=== PATIENT | male | born 1960 | race Caucasian/White ===

== ENCOUNTER 2016-10-16 11:03 | Inpatient (IN) ==
[2016-10-16 11:37] LABS: MANUAL DIFF NEEDED? NO
[2016-10-16 11:39] LABS: BASO% 0.4 % (0.0-0.8); EOS# 0.04 X1000 (0.0-0.7); EOS% 0.7 % (0.0-10.0); HEMATOCRIT 33.5 % (42.0-52.0); HEMOGLOBIN 11.1 g/dL (14.0-18.0); LYMPH# 1.19 X1000 (1.2-3.4); LYMPH% 21.5 % (20.5-51.1); MCH 28.5 PG (27-31); MCHC 33.1 g/dL (33-37); MCV 85.9 FL (81-99); MONO# 0.49 X1000 (0.11-0.59); MONO% 8.8 % (1.7-9.3); MPV 8.9 FL (7.4-10.4); NEUT% 68.6 % (42.2-75.2); PLT 281 X1000 (130-400)
[2016-10-16 12:05] LABS: AGAP 13; ALBUMIN 4.4 g/dL (3.5-5.0); ALKALINE PHOSPHATASE 79 U/L (32-122); AMYLASE 68 U/L (20-200); BUN 10 mg/dL (8-22); CALCIUM 8.8 mg/dL (8.8-10.2); CHLORIDE 93 mmol/L (98-107); COSMO 266; GOT 11 U/L (10-34); GPT 7 U/L (10-44); LIPASE 26 U/L (13-60); POTASSIUM 4.2 mmol/L (3.5-5.1); SODIUM 133 mmol/L (136-145); TCO2 27 mmol/L (25-35); TOTAL BILIRUBIN 0.32 mg/dL (0.20-1.00)
[2016-10-16 15:08] LABS: URINE CULTURE NEEDED? NO; URINE MICRO REVIEW NEEDED? NO; URINE SOURCE CLEAN CATCH
[2016-10-16 15:16] LABS: BILIRUBIN URINE NEGATIVE (NEGATIVE); BLOOD URINE NEGATIVE (NEGATIVE); COLOR YELLOW; GLUCOSE URINE NEGATIVE (NEGATIVE); LEUKOCYTES URINE NEGATIVE (NEGATIVE); NITRITE URINE NEGATIVE (NEGATIVE); PROTEIN URINE TRACE mg/dL (NEGATIVE); SP GRAVITY URINE 1.013; TURBIDITY URINE HAZY (CLEAR); UROBILINOGEN URINE NORMAL (NORMAL)
[2016-10-16 15:17] LABS: UR EPITHELIAL CELLS <10 /HPF (<10); URINE BACTERIA NEGATIVE /HPF; URINE RBC <10 /HPF (<10); URINE WBC <10 /HPF (<10)
--- NOTE | 2016-10-16 17:57 | PROVIDER DOCUMENTATION ---
This chart was entered by Alycia Mills Scribe, acting as scribe for Duane Mcconnell MD. HPI-General Adult - General Source: patient, other (PCP REFERRAL) - History of Present Illness -Gen Adult Nature of Presenting Problems: PT IS A 56YOM PRESENTING TO THE ED C/O INCREASED WEIGHT LOSS. ACCORDING TO PT HISTORY HE HAS LOST 50LBS OR MORE IN THE PAST 6 MONTHS. PT IS DOWN TO 114ILBS AND IS 5'9" tall. PT IS UNAWARE OF WHY OR HOW HE IS LOOSING SO MUCH WEIGHT AND DENIES ANY COMPLICATIONS AT THIS TIME. Location of Pain/Injury: reports: generalized Pain Radiation: reports: no radiation Quality of Pain: reports: none Severity: reports: moderate Onset/Duration: reports: gradual, other (6 MONTHS) Timing: reports: still present, changing over time Context/Activities at Onset: reports: light activity Modifying Factors: improves with: nothing Associated Symptoms: reports: fatigue, loss of appetite, weakness, other (50LB OR GREATER WEIGHT LOSS IN THE PAST 6 MONTHS). denies: back/neck pain, chest pain, constipation, diarrhea, shortness of breath, pain with inspiration, vomiting Similar Symptoms Previously?: Yes Recently seen or treated by another doctor?: No <Duane Mcconnell - Last Filed: 10/16/16 18:10> - General Source: patient <Bala Iyer - Last Filed: 10/16/16 19:29> - General Chief Complaint: Abdominal Pain Stated Complaint: STOMACH CRAMPS/NO EAT Time Seen by Provider: 10/16/16 14:08 Allergies/Adverse Reactions: Patient Allergies Allergy/AdvReac Type Severity Reaction Status Date / Time No Known Allergies Allergy Verified 10/16/16 15:00 Home Medications: Home Medication List Medication Instructions Recorded Confirmed Last Taken Type Roflumilast [Daliresp] 500 microgm PO DAILY 02/19/15 02/25/16 10/16/16 08:00 History Escitalopram Oxalate [Lexapro] 10 mg PO DAILY 02/25/16 02/25/16 02/25/16 07:00 History 10 MG Lisinopril 10 mg PO DAILY 02/25/16 02/25/16 10/16/16 08:00 History Clonazepam [Clonazepam] 0.5 mg PO TID 0510/16/16 10/16/16 08:00 History Fluconazole [Diflucan] 150 mg PO PRN PRN 10/16/16 10/16/16 Unknown History Hydroxyzine HCl [Hydroxyzine HCl] 50 mg PO 10/16/16 10/16/16 08:00 History Oxycodone E.r. [Oxycontin] 20 mg PO 4XDAY 10/16/16 10/16/16 10/16/16 08:00 History Temazepam [Temazepam] 15 mg PO DAILY 10/16/16 10/16/16 Unknown History Tizanidine HCl [Tizanidine HCl] 4 mg PO 10/16/16 10/16/16 08:00 History Review of Systems - Adult - REVIEW OF SYSTEMS - ADULT Constitutional: reports: see HPI, fatique, weight loss (50LB OR GREATER WEIGHT LOSS IN THE PAST 6 MONTHS). denies: chills Eyes: reports: no symptoms reported Ears, Nose, Mouth & Throat: reports: no symptoms reported Cardiovascular: reports: no symptoms reported Respiratory: reports: no symptoms reported Gastrointestinal: reports: no symptoms reported Genitourinary: reports: no symptoms reported Musculoskeletal: reports: no symptoms reported Integumentary: reports: no symptoms reported Neurological: reports: no symptoms reported Psychiatric: reports: no symptoms reported Endocrine: reports: no symptoms reported Hematologic/Lymphatic: reports: no symptoms reported Allergic/Immunologic: reports: no symptoms reported All Other Systems: Reviewed and Negative <Duane Mcconnell - Last Filed: 10/16/16 18:10> - REVIEW OF SYSTEMS - ADULT Constitutional: reports: see HPI <Bala Iyer - Last Filed: 10/16/16 19:29> Past History - Adult - PAST MEDICAL HISTORY-ADULT Review of Records: reports: Old Records Reviewed, Nursing Assessment Review, Medications Reviewed, Social history reviewed & non-contributory. Major Childhood Illnesses: reports: denies history Cardiovascular: reports: CHF, HTN Respiratory: reports: COPD Gastrointestinal: reports: denies history Obstetrical/Gynecological: reports: denies history Genitourinary: reports: denies history Musculoskeletal: reports: denies history Neurological: reports: Seizures/Epilepsy Endocrine/Immune: reports: denies history Other Conditions: reports: MRSA - PRIOR SURGERIES/PROCEDURES Surgical/Procedure History: reports: other (finger amputation) - IMMUNIZATION STATUS Childhood Immunizations: See Nurse Assessment Flu Vaccine: See Nurse Assessment - FAMILY HISTORY Family History: reviewed, not pertinent - SOCIAL HISTORY Smoking: other (USES VAP OR ELECTRONIC CIGARETTE) Provider spent 3-5 mins advising pt. on dangers of tobacco.: Discussed manners to quit use, and f/u contacts for add'l counseling. Substance Use: none presently/history of abuse Alcohol Use Frequency: sober (former use) Living Situation: family <Duane Mcconnell - Last Filed: 10/16/16 18:10> - PAST MEDICAL HISTORY-ADULT Review of Records: reports: Old Records Reviewed <Bala Iyer - Last Filed: 10/16/16 19:29> Physical Exam-General - PHYSICAL EXAM-ADULT Initial Vital Signs Reviewed: Yes - CONSTITUTIONAL General Appearance: alert, mild distress, thin. negative: appears well, no apparent distress - EYES Eyes: PERRL/EOMI, pink conjunctivae - HEAD, EARS, NOSE, MOUTH & THROAT HENMT: normocephalic/atraumatic, moist mucous membranes, normal ENT inspection, TMs normal, pharynx normal - NECK Neck: non-tender, full range of motion, supple, normal inspection - RESPIRATORY Respiratory: chest non-tender, lungs clear, normal breath sounds, no pleuratic chest pain, no respiratory distress, no accessory muscle use - CARDIOVASCULAR Cardiovascular: normal peripheral pulses, regular rate, rhythm, no edema, no gallop, no JVD, no murmur - GASTROINTESTINAL (ABDOMEN) Abdominal Exam: normal bowel sounds, non tender, soft, no organomegaly, no pulsatile mass - LYMPHATIC Lymphatic: no adenopathy - MUSCULOSKELETAL Back Exam: normal inspection, no CVA tenderness, no vertebral tenderness Extremity: normal range of motion, non-tender, normal gait, normal inspection, no pedal edema, no calf tenderness, normal capillary refill, pelvis stable - SKIN Integumentary: normal turgor, warm/dry, pallor. negative: normal color - NEUROLOGIC Neurologic: medical administrative specialist II-XII nml as tested, grossly normal, no motor/sensory deficits - PSYCHIATRIC Psych/Mental Status: normal thought content, normal thought process, oriented x 3, anxious, other (50LB OR GREATER WEIGHT LOSS IN THE PAST 6 MONTHS). negative : normal mood/affect <Duane Mcconnell - Last Filed: 10/16/16 18:10> - CONSTITUTIONAL General Appearance: alert <Bala Iyer - Last Filed: 10/16/16 19:29> Progress - PLAN OF CARE/RESULTS Progress/Plan/Lab Results: Vital Signs - 8 hr 10/16/16 11:17 10/16/16 14:57 Temperature 98.6 F Pulse Rate 87 68 Respiratory Rate 16 Blood Pressure 112/66 102/93 O2 Sat by Pulse Oximetry 99 99 Laboratory Results - last 24 hr 10/16/16 10/16/16 10/16/16 11:28 11:28 14:58 WBC 5.54 RBC 3.90 L Hgb 11.1 L Hct 33.5 L MCV 85.9 MCH 28.5 MCHC 33.1 RDW Std Deviation 12.4 Plt Count 281 MPV 8.9 Immature Gran % (Auto) 0.0 Neut % (Auto) 68.6 Lymph % (Auto) 21.5 [place] % (Auto) 8.8 Eos % (Auto) 0.7 Baso % (Auto) 0.4 Immature Gran # (Auto) 0.00 Neut # (Auto) 3.80 Lymph # (Auto) 1.19 L Montgomery # (Auto) 0.49 Eos # (Auto) 0.04 Baso # (Auto) 0.02 Sodium 133 L Potassium 4.2 Chloride 93 L Carbon Dioxide 27 Anion Gap 13 BUN 10 Creatinine 0.8 Estimated GFR/1.73 m2 > 60 BUN/Creatinine Ratio 13 Glucose 112 H Calculated Osmolality 266 Calcium 8.8 Total Bilirubin 0.32 AST 11 ALT 7 L Alkaline Phosphatase 79 Total Protein 7.0 Albumin 4.4 Globulin 2.6 Albumin/Globulin Ratio 1.7 Amylase 68 Lipase 26 Urine Source CLEAN CATCH Urine Color YELLOW Urine Turbidity HAZY Urine pH 8.0 Ur Specific [place] 1.013 Urine Protein TRACE A Ur Glucose (Stick) NEGATIVE Ur Ketones (Stick) NEGATIVE Urine Blood NEGATIVE Urine Nitrite NEGATIVE Urine Bilirubin NEGATIVE Urobilinogen Dipstick NORMAL Urine Leukocytes NEGATIVE Urine WBC (Auto) <10 Urine RBC (Auto) <10 U Epithel Cells (Auto) <10 Urine Bacteria (Auto) NEGATIVE Orders Category Date Time Status Saline Loc DIRECTED Care 10/16/16 11:20 Active NPO Diet 10/16/16 11:20 Active AMYLASE [CHEM] Stat Lab 10/16/16 11:28 Completed CBC WITH ELECTRONIC DIFF [HEME] Stat Lab 10/16/16 11:28 Completed COMPREHENSIVE METABOLIC PANEL [CHEM] Stat Lab 10/16/16 11:28 Completed LIPASE [CHEM] Stat Lab 10/16/16 11:28 Completed Stool [OCCULT BLOOD SCREENING] [STOOL] Stat Lab 10/16/16 14:18 Uncollected URINALYSIS W/POSS RFLX CULT-1 [URINALYSIS] Stat Lab 10/16/16 14:58 Completed Result Diagrams: 10/16/16 11:28 10/16/16 11:28 - CHANGE OF SHIFT REPORT (ED Provider) Report Given and Care Transferred to:: albaro Iyer <Duane Mcconnell - Last Filed: 10/16/16 18:10> - PLAN OF CARE/RESULTS Progress/Plan/Lab Results: Vital Signs - 8 hr 10/16/16 14:57 10/16/16 16:03 10/16/16 18:00 Pulse Rate 68 97 H Respiratory Rate 18 Blood Pressure 102/93 129/88 162/98 O2 Sat by Pulse Oximetry 99 98 10/16/16 19:10 Pulse Rate 63 Respiratory Rate 15 Blood Pressure 149/90 O2 Sat by Pulse Oximetry 100 10/16/16 16:02 Stool Occult Blood (CINTIA) - Final Stool Laboratory Results - last 24 hr 10/16/16 10/16/16 10/16/16 11:28 11:28 14:58 WBC 5.54 RBC 3.90 L Hgb 11.1 L Hct 33.5 L MCV 85.9 MCH 28.5 MCHC 33.1 RDW Std Deviation 12.4 Plt Count 281 MPV 8.9 Immature Gran % (Auto) 0.0 Neut % (Auto) 68.6 Lymph % (Auto) 21.5 Montgomery % (Auto) 8.8 Eos % (Auto) 0.7 Baso % (Auto) 0.4 Immature Gran # (Auto) 0.00 Neut # (Auto) 3.80 Lymph # (Auto) 1.19 L Montgomery # (Auto) 0.49 Eos # (Auto) 0.04 Baso # (Auto) 0.02 Sodium 133 L Potassium 4.2 Chloride 93 L Carbon Dioxide 27 Anion Gap 13 BUN 10 Creatinine 0.8 Estimated GFR/1.73 m2 > 60 BUN/Creatinine Ratio 13 Glucose 112 H Calculated Osmolality 266 Calcium 8.8 Total Bilirubin 0.32 AST 11 ALT 7 L Alkaline Phosphatase 79 Total Protein 7.0 Albumin 4.4 Globulin 2.6 Albumin/Globulin Ratio 1.7 Amylase 68 Lipase 26 Urine Source CLEAN CATCH Urine Color YELLOW Urine Turbidity HAZY Urine pH 8.0 Ur Specific [place] 1.013 Urine Protein TRACE A Ur Glucose (Stick) NEGATIVE Ur Ketones (Stick) NEGATIVE Urine Blood NEGATIVE Urine Nitrite NEGATIVE Urine Bilirubin NEGATIVE Urobilinogen Dipstick NORMAL Urine Leukocytes NEGATIVE Urine WBC (Auto) <10 Urine RBC (Auto) <10 U Epithel Cells (Auto) <10 Urine Bacteria (Auto) NEGATIVE Orders Category Date Time Status Saline Loc DIRECTED Care 10/16/16 11:20 Active NPO Diet 10/16/16 11:20 Active ABDOMEN/PELVIS W/CONTRAST [CT] Stat Exams 10/16/16 16:40 Taken cxr [CHEST-2 VIEWS] [RAD] Stat Exams 10/16/16 16:51 Taken AMYLASE [CHEM] Stat Lab 10/16/16 11:28 Completed CBC WITH ELECTRONIC DIFF [HEME] Stat Lab 10/16/16 11:28 Completed COMPREHENSIVE METABOLIC PANEL [CHEM] Stat Lab 10/16/16 11:28 Completed LIPASE [CHEM] Stat Lab 10/16/16 11:28 Completed Stool [OCCULT BLOOD SCREENING] [STOOL] Stat Lab 10/16/16 16:02 Completed URINALYSIS W/POSS RFLX CULT-1 [URINALYSIS] Stat Lab 10/16/16 14:58 Completed 0.9% Sodium Chloride Inj [Ns] 1,000 ml Med 10/16/16 18:28 Active IV 999 mls/hr Will discuss case c hospitalist service. Result Diagrams: 10/16/16 11:28 10/16/16 11:28 - CT/MRI 1 CT Study: Abdomen, Pelvis CT Results: 2cm irregular nodule at posterior bladder wall;nonspecific bowel distention - CONSULTS/PCP/HOSPITALIST Notification #1 *Consult/PCP/Hospitalist*: Dr. Del Cid Time Discussed: 19:27 Consult Disposition: Admit <Bala Iyer - Last Filed: 10/16/16 19:29> Departure <Duane Mcconnell - Last Filed: 10/16/16 18:10> - Departure Time of Disposition Decision: 19:27 Certified Medical Emergency: Emergent - Critical Care Note This patient required my direct & personal management of CC.: No <Bala Iyer - Last Filed: 10/16/16 19:29> - Departure DIAGNOSIS: Abnormal weight loss, Weakness, Bladder mass Disposition: ADMITTED INPATIENT 09 Condition: Stable Referrals and Follow-Ups: Rashid Sarabia [Primary Care Provider] - Attestation - Physician/ DANGELO Attestation Patient care was provided by Advanced Practice Provider:: Yes Advanced Practice Provider:: Bala Iyer Advanced Practice Provider documentation review:: The Mid-level provider documentation, treatment plan and medical decision making was reviewed by the physician who agrees with all treatment and medical decision making by the MLP. The physician spent face to face time with patient:: Yes Advanced Practice Provider documentation review:: The physician spent face to face time with this patient and agrees with all MLP documentation, treatment, and medical decision making by the MLP. See provider notes for further information. <Bala Iyer - Last Filed: 10/16/16 19:29> This chart was documented by the indicated scribe, (Alycia Mills Scribe) and accurately reflects the services I performed and decisions made by me, Duane Mcconnell MD, as attested by the provider's signature.
[2016-10-16] MEDS ORDERED: NS 1,000 ML IV ONE (18:28)
[2016-10-16] MEDS ORDERED: NICODERM PATCH TD ONE (21:08)
--- NOTE | 2016-10-16 22:08 | HISTORY AND PHYSICAL ---
PRIMARY CARE PROVIDER: Dr. Beltre, I believe. CHIEF COMPLAINT: Weight loss. HISTORY OF PRESENT ILLNESS: This is a 56-year-old male who in the past has been noncompliant with medications. He spent time on the ventilator and could not be weaned. He underwent a tracheostomy and was sent to [facility] which, is now [facility] in [place], to their long-term care facility to be weaned off the ventilator. He reportedly at that time had 14% lung function related to end-stage COPD. He reportedly now has around 35%. At any rate, the patient has overall failure to thrive. He was sent by his primary care provider to find out why he has had rapid weight loss. However, the weight loss appears to be much more chronic in nature. The patient has slowly declined in his ability to ambulate, work, and overall have a quality of life. This has caused him to be depressed. The states that most times he just sits in 1 position at home. He has started to have increased gibbus with his scoliosis, to the extent where his right ribcage has moved over his hip. He also has a chronic contracture to his neck, which is deviated to the right. The patient also frankly does not seem to want help. During the admission interview, he stated that there was going to be nothing that we could do for him. He has been worked up several times. We are not going to find anything. He is on depression medication. He simply does not want to the eat. He told his that he no longer wanted to live in this condition. However, he did not express suicidal ideation or a plan to harm himself. A CT of the abdomen was obtained in the emergency room, which did show a 2 cm irregular nodule at the posterior bladder wall. Neoplasm could not be excluded. Severe scoliosis, and otherwise is stable from previous examinations. He will be admitted to the medical floor in observation status for further evaluation and treatment. PAST MEDICAL HISTORY: 1. 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 2. Chronic pain medications. The patient was previously seeing Dr. Gonzales, who has moved to [place], and I am unsure who he sees at this time. 3. Ischemic heart disease. 4. Hypertension. 5. Thoracic scoliosis with gibbus. 6. Chronic insomnia. 7. Anxiety. 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 HOME MEDICATIONS: Questionable Daliresp, lisinopril, and an antidepressant. I believe he said it was Trilipix. However, these have not been confirmed. The patient does take oxycodone 20 mg p.o. 4 times daily, temazepam 50 mg p.o. daily, Diflucan p.o. p.r.n., Klonopin 0.5 mg p.o. t.i.d., and then questionably takes hydroxyzine 50 mg and tizanidine 4 mg p.o. ALLERGIES: No known drug allergies. SOCIAL HISTORY: Lives with his in [place]. He was a heavy smoker. He has had a dramatic decrease in his activities of daily living, and overall failure to thrive. In the past, he did abuse alcohol. Denies illicit drug use or abuse. He is chronically depressed, and having issues with stress related to his health issues. FAMILY HISTORY: Positive for coronary artery disease. REVIEW OF SYSTEMS: Fourteen-point review of systems conducted with the patient. Pertinent positives listed above in the HPI. All other systems were reviewed and found to be negative. PHYSICAL EXAMINATION: VITAL SIGNS: Temperature 98.6, pulse 63 respirations 15, blood pressure 149/90 , oxygen saturation 100% on room air. GENERAL: This is a cachectic, unpleasant 56-year-old male who is in an unfortunate state. He has had a huge decrease in his activities of daily living, and has an overall flat or depressed affect. He is able to answer all questions appropriately, and is in no acute distress. HEENT: Head is atraumatic, normocephalic. Pupils equal, round, reactive to light. Extraocular eye movement is intact. Sclerae is anicteric. Oral mucosa is mildly dry. NECK: Contracted chronically to the right. Trachea is midline. CARDIAC: Regular rhythm. S1-S2 appreciated. No murmurs, gallops, or rubs. LUNGS: Clear to auscultation. Diminished bilaterally. Poor inspiratory effort. Symmetrical rise and fall with respirations. CHEST: As noted above, right ribcage is now chronically elevated and maladjusted to sit over his right hip bone. Nontender to palpation. No lymphadenopathy. ABDOMEN: Soft, nondistended, nontender. Bowel sounds present in all 4 quadrants. Normoactive. No pulsatile mass. No organomegaly. EXTREMITIES: No clubbing, cyanosis, or edema. 2+ pedal pulses. GENITOURINARY: The patient voids. Otherwise, deferred. MUSCULOSKELETAL: Global weakness noted, 3/5 upper and lower extremity strength , with decreased range of motion as noted above in assessment. NEUROLOGICAL: Alert and oriented x3. Cranial nerves 2-12 appear to be grossly intact. However, please note that he does have severe scoliosis, with gibbus, and is not flexible. PSYCHIATRIC: The patient has a flat depressed affect, with bouts of irritability during the examination. DIAGNOSTIC DATA: CT of the abdomen: See HPI. LABORATORY DATA: Hemoglobin is 11.1, hematocrit 33.5, otherwise grossly normal. Sodium is 133, potassium 4.2, chloride 93, carbon dioxide is 27, BUN 10, creatinine 0.8, glucose 112. Urine unremarkable. ASSESSMENT AND PLAN: 1. Failure to thrive, with chronic weight loss, which has been rapid over the past 4 months. The patient and his at bedside both express that he has had a steep decline in the last couple years after being weaned off of the ventilator and having his trach reversed. He has declining health, which is causing him depression. He is not eating. However, it is more related to appetite and willingness to eat it appears, than any actual problem eating. He has had an endoscopy, which did show some blood in his abdomen, but no specifics source. This was sometime in the past. The patient does apparently take dietary supplements, such as Ensure. 2. Chronic obstructive pulmonary disease, with home oxygen. This is end-stage. The patient has had his medications maximized, but apparently has taken himself off some of them. He is overall noncompliant, stating that he does not want to take very many medications. They seem to be the problem. We will continue oxygen therapy and nebulizers as needed. 3. Chronic opioid pain medication. We will continue home medications. 4. Ischemic heart disease. I could not find much about this in his past medical history. We will order an echocardiogram. 5. Hypertension. Continue home medications. 6. Thoracic scoliosis with gibbus noted. 7. Depression, anxiety noted. I am waiting for home medications to be placed in the computer. We will continue when available. 8. Protein calorie malnutrition. While the patient does have a normal albumin, he is very cachectic. He has a normal albumin, but he is very cachectic. According to the , does not attempt to eat. He has no complaint of abdominal pain. He will be placed on Clinimix at 100 mL an hour, started on a regular diet, and add Boost for nutritional supplementation. 9. New bladder cyst, from previous CT. Will consult Dr. Martines to rule out neoplasm. Further recommendations per patient's clinical course. Dictated by THIAGO Valle for Timothy Del Cid MD cc: THIAGO Valle MD Bhavna Gowda, MD MTDD
[2016-10-16] MEDS ORDERED: ZOFRAN IV PRN (22:52)
[2016-10-16] MEDS: RESTORIL PO SCH (23:28)
[2016-10-16] MEDS: OXYCONTIN PO PRN (23:28)
[2016-10-16] MEDS: CLINIMIX E 4.25%-5% SOLUTION 1,000 ML IV SCH (23:28)
[2016-10-16] MEDS ORDERED: FLOMAX PO SCH (23:33)
[2016-10-16] MEDS: FLOMAX PO SCH (23:53)
--- NOTE | 2016-10-17 05:53 | Diag Imaging Result Doc PS360 ---
EXAM: CHEST-2 VIEWS HISTORY: weight loss TECHNIQUE: COMPARISON: 02/25/2016 FINDINGS: The right hemidiaphragm is elevated. Prominent scoliosis. The heart is not enlarged. The vessels are not distended. No pleural effusions. No infiltrates. IMPRESSION: No acute abnormality. Electronically signed by Cristobal Elliott 10/17/2016 5:51 AM
[2016-10-17 06:40] LABS: MANUAL DIFF NEEDED? NO
[2016-10-17 06:44] LABS: BASO% 0.3 % (0.0-0.8); EOS# 0.15 X1000 (0.0-0.7); EOS% 2.6 % (0.0-10.0); HEMATOCRIT 29.4 % (42.0-52.0); HEMOGLOBIN 9.6 g/dL (14.0-18.0); LYMPH# 1.48 X1000 (1.2-3.4); LYMPH% 25.3 % (20.5-51.1); MCH 28.1 PG (27-31); MCHC 32.7 g/dL (33-37); MONO# 0.52 X1000 (0.11-0.59); MONO% 8.9 % (1.7-9.3); MPV 9.5 FL (7.4-10.4); NEUT% 62.9 % (42.2-75.2); PLT 252 X1000 (130-400); RBC 3.42 XMIL (4.7-6.1)
[2016-10-17 07:09] LABS: AGAP 12; BUN 10 mg/dL (8-22); CALCIUM 8.2 mg/dL (8.8-10.2); CHLORIDE 93 mmol/L (98-107); COSMO 263; IRON SATURATION 24 %; MAGNESIUM 1.7 mg/dL (1.5-2.7); POTASSIUM 4.4 mmol/L (3.5-5.1); SODIUM 132 mmol/L (136-145); TCO2 27 mmol/L (25-35); TIBC 223 ug/dL; TOTAL IRON 54 ug/dL (53-167); UNBOUND IRON 169 ug/dL (112-346)
--- NOTE | 2016-10-17 07:21 | Diag Imaging Result Doc PS360 ---
EXAM: ABDOMEN/PELVIS W/CONTRAST HISTORY: 50 pound weight loss TECHNIQUE: CT of the abdomen with intravenous and oral contrast and dose reduction (clarity.) COMMENT: The current study is compared with that of 03/01/2015. There is apparent atelectasis in the right lower lobe which is actually improved since the previous study of 03/01/2015. There are multiple gallstones in the 3 to 5 mm size range in the gallbladder. Severe rotoscoliosis of the lumbar spine with convexity to the left distorts the abdomen considerably. There is no evidence of abdominal aortic aneurysm. The mesenteric vessels appear to be patent. The liver and spleen are stable in appearance. The adrenal glands are not enlarged. There are large coarse calcifications in the head of the pancreas. The pancreas is generally atrophic. These findings have not changed since the previous study. There is marked gaseous dilatation of the colon particularly in the hepatic flexure region. There is oral contrast in the distal small bowel but this has not reached the colon yet. There is no evidence of free air. No evidence of significant adenopathy is present. CT of the pelvis with intravenous and oral contrast: There is a moderate amount of stool in the distal colon and rectum. There are some apparent areas of mucosal nodularity present posteriorly in the urinary bladder one of which measures over 2 cm in transverse dimension. This is not appreciable on the previous study of 03/01/2015. The regional skeleton is stable in appearance. IMPRESSION: Chronic pancreatitis. Filling defects in the urinary bladder which may indicate mucosal lesions. Gaseous dilatation of the colon with mild constipation. Electronically signed by Atul Eldridge 10/17/2016 7:19 AM
[2016-10-17] MEDS: OXYCONTIN PO PRN ×3 (07:49→20:36)
[2016-10-17] MEDS: KLONOPIN PO SCH ×3 (08:30→20:35)
[2016-10-17] MEDS: DALIRESP PO SCH (08:30)
[2016-10-17] MEDS: CLINIMIX E 4.25%-5% SOLUTION 1,000 ML IV SCH ×2 (09:55→20:38)
--- NOTE | 2016-10-17 12:41 | CONSULTATION ---
DATE OF CONSULTATION: 10/17/2016 ATTENDING/REFERRING PHYSICIAN: Hospitalist. HISTORY OF PRESENT ILLNESS: This 56-year-old male was admitted with weight loss, not feeling well, and failure to thrive. He states he has had significant weight loss and is down to 114 pounds. The patient states he just does not have an appetite. His CT scan revealed chronic pancreatitis as well as filling defects in the bladder which may be bladder tumors. The patient denies any hematuria. He states he takes Flomax for his prostate. He denies any voiding problems. He has no problems with urinary tract infections. There is no history of kidney stones or previous urologic surgery. PAST MEDICAL HISTORY: End-stage COPD, severe scoliosis, thoracic kyphosis, chronic pain coronary artery disease, hypertension, and depression. He was previously intubated and could not be wean from the ventilator. He had a tracheostomy placed and was in a long-term facility where he was slowly weaned off the ventilator. 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 SOCIAL HISTORY: He uses E cigarettes. Previous alcohol abuse but none for several years. REVIEW OF SYSTEMS: No known drug allergies. He states he has been very depressed because he does not feel well. PHYSICAL EXAMINATION: General: A very thin, age apparent, white male, who is cooperative. HEENT: Normal for age. Lungs: With crackles. Cardiovascular: Regular rate and rhythm. Abdomen: Soft, nontender. No hepatosplenomegaly or masses. Normal bowel sounds. His right rib cage is down over his right iliac wing. Genitourinary: Circumcised male. Both testes down. Right spermatocele. Small hydroceles bilaterally. No inguinal hernias. Rectal: Deferred until surgery. Extremities: No clubbing, cyanosis, or edema. Neurologic: No focal deficits. LABORATORY EVALUATION: Has a white count of 5.85, hemoglobin 9.6, hematocrit of 29.4, platelets are 252,000. Serum electrolytes has a sodium of 132, potassium 4.4, chloride 93, bicarb 27, BUN 10, creatinine 0.6. A urinalysis was negative without any microhematuria. CT scan is as noted in the history of present illness. IMPRESSIONS: Patient with multiple medical problems includin. End-stage chronic obstructive pulmonary disease on home oxygen. 2. Enlarged prostate with obstructive voiding. 3. Bladder mass or nodules on CT scan. RECOMMEND: Continue Flomax 0.4 mg a day. Cystoscopic exam and bladder biopsies if needed, if cleared by anesthesia. This planned procedure, benefits versus risks, and possible complications, including, but not limited to, bleeding, infection, not finding any lesions, finding lesions with need for further treatment was discussed. He seems to understand and desires to proceed. cc: Jas Martines MD
[2016-10-17] MEDS: NICODERM PATCH TD PRN (14:51)
--- NOTE | 2016-10-17 15:42 | ECHO REPORT ---
ORDER DATE: 10/17/2016 INDICATION FOR THE STUDY: Ischemic heart disease, end-stage COPD, hypertension. FINDINGS: 1. Right atrium is mildly enlarged at 4.5 cm. 2. Mild tricuspid regurgitation. RV systolic pressure of 32. 3. Normal RV systolic function with mild enlargement of the right ventricle. 4. Mild pulmonic insufficiency. 5. Normal left atrial size at 3.7 cm. 6. No mitral prolapse. Mild mitral regurgitation. 7. Normal LV size, end-diastolic dimension of 4.7 cm. Borderline mild left ventricular hypertrophy with a posterior and interventricular septal wall thickness of 1.1 and 1.2 cm respectively. Normal LV systolic function. Estimated EF 60% with normal wall motion. 8. Aortic valve opens well. It is trileaflet. There is no evidence of stenosis or insufficiency. 9. Aorta appears normal in visualized segments. 10. No pericardial effusion seen. cc: MD Jhonny Sandy CRNP
[2016-10-17] MEDS ORDERED: VENOFER 300 MG in NS 250 ML IV ONE (16:00)
--- NOTE | 2016-10-17 16:31 | PROGRESS NOTE ---
DATE: 10/17/2016 SUBJECTIVE: Today Mr. Ramírez refers to be doing a little bit better but feels generalized weakness and not wanting to eat. The patient has been sick for a while with poor appetite and severe scoliosis with pulmonary compromise. He follows up with Dr. Becker. OBJECTIVELY: Vital Signs: Blood pressure is 102/51, pulse 64, respirations 20 , temperature is 97.7 degrees. General: Mr. Ramírez is a 56-year-old male. He is in bed. He looks extremely wasted. HEENT: Mucosa is slightly dry. Anicteric. Acyanotic. Neck: Supple. Chest: Air entry is bilaterally reduced. The chest wall is severely deformed with slightly toward the right side consistent with severe scoliosis. Cardiovascular : Regular rate and rhythm. Abdomen: Soft, nontender. Bowel sounds are slightly decreased. Extremities: No pedal edema. Central Nervous System: Patient is alert, oriented. Psychiatric: Patient seems to interact pretty well but has a flat affect. LABORATORY DATA: WBC 5.85, hemoglobin 9.6, platelet count of 253,000. Sodium is 132, potassium is 4.4, chloride is 93, bicarbonate is 27, ferritin is 73, TSH is 1.59. Glucose is normal. IMAGING STUDIES: CT scan of the abdomen and pelvis was done which shows chronic pancreatitis with some filling defects in the urinary bladder indicative of mucosal lesion. CURRENT MEDICATIONS: 1. Klonopin. 2. Nicotine patch. 3. OxyContin 20 mg q.6 hours p.r.n. 4. Roflumilast 500 mcg daily. 5. Tamsulosin 0.4 p.o. daily. 6. Restoril 15 mg at bedtime. 7. Tizanidine 4 mg b.i.d. ASSESSMENT: 1. Extremely poor appetite with failure to thrive. Etiology is apparently not clear. I am not quite sure if there is any organic component but patient does have severe depression which I think needs to be treated more aggressively. He is currently on Trintellix 10 mg daily. We are going to add mirtazapine and also Megace to see if we can improve his appetite. Patient is currently on Clinimix. We will add lipid infusion and consult dietitian to guide us with diet recommendations as we intend to improve his nutritional status. 2. Severe constipation. I think this is due to the fact that the patient is on chronic opioid medications. We would address this more symptomatically. 3. Iron deficiency. Likely due to nutritional deficiency. We will give the patient a dose of Venofer IV. 4. Bladder mucosal lesion. Urology has been consulted and there is a plan to do possible cystoscopy with biopsies. 5. Severe depression. This has been addressed. See above. 6. Clinical dehydration. We will add baseline normal saline to his hydration. 7. Chronic pancreatitis on CT scan. The patient did have a history in the past of alcohol abuse and I think that is the cause, however, he denies having any steatorrhea or any severe recurrent abdominal pain. 8. History of chronic obstructive pulmonary disease noted. 9. Severe thoracic scoliosis with compromise to pulmonary physiology noted. 10. History of coronary artery disease. cc: David Yoo MD MTDD
[2016-10-17] MEDS: MIRALAX PO SCH (18:24)
[2016-10-17] MEDS: NS 1,000 ML IV SCH (18:24)
[2016-10-17] MEDS: LIPOSYN 20% 250 ML IV SCH (18:25)
[2016-10-17] MEDS: ZANAFLEX PO SCH (20:35)
[2016-10-17] MEDS: HYDROXYZINE PO SCH (20:35)
[2016-10-17] MEDS: FLOMAX PO SCH (20:35)
[2016-10-17] MEDS: REMERON PO SCH (20:35)
[2016-10-17] MEDS: RESTORIL PO SCH (20:35)
[2016-10-17] MEDS: MEGACE LIQUID PO SCH (20:37)
[2016-10-18] MEDS: OXYCONTIN PO PRN ×4 (02:50→18:33)
[2016-10-18 06:00] LABS: MANUAL DIFF NEEDED? NO
[2016-10-18 06:14] LABS: BASO% 0.3 % (0.0-0.8); EOS# 0.17 X1000 (0.0-0.7); EOS% 2.7 % (0.0-10.0); HEMATOCRIT 31.7 % (42.0-52.0); HEMOGLOBIN 10.5 g/dL (14.0-18.0); LYMPH# 1.54 X1000 (1.2-3.4); LYMPH% 24.8 % (20.5-51.1); MCH 28.7 PG (27-31); MCHC 33.1 g/dL (33-37); MCV 86.6 FL (81-99); MONO# 0.66 X1000 (0.11-0.59); MONO% 10.6 % (1.7-9.3); MPV 9.6 FL (7.4-10.4); NEUT% 61.6 % (42.2-75.2); PLT 246 X1000 (130-400); RBC 3.66 XMIL (4.7-6.1)
[2016-10-18] MEDS: CLINIMIX E 4.25%-5% SOLUTION 1,000 ML IV SCH ×2 (06:28→18:34)
[2016-10-18 06:39] LABS: AGAP 10; ALBUMIN 3.9 g/dL (3.5-5.0); ALKALINE PHOSPHATASE 68 U/L (32-122); BUN 17 mg/dL (8-22); CALCIUM 8.6 mg/dL (8.8-10.2); CHLORIDE 96 mmol/L (98-107); COSMO 271; GOT 11 U/L (10-34); GPT 7 U/L (10-44); POTASSIUM 4.8 mmol/L (3.5-5.1); SODIUM 135 mmol/L (136-145); TCO2 29 mmol/L (25-35); TOTAL BILIRUBIN 0.26 mg/dL (0.20-1.00); TOTAL PROTEIN 6.3 g/dL (6.3-8.3)
[2016-10-18] MEDS ORDERED: NS 250 ML ONE (08:23)
[2016-10-18 09:12] LABS: INR 1.07; PROTIME 11.3 Seconds (9.2-11.7)
[2016-10-18] MEDS: DALIRESP PO SCH (10:57)
[2016-10-18] MEDS: KLONOPIN PO SCH ×3 (10:57→17:01)
[2016-10-18] MEDS: MEGACE LIQUID PO SCH ×2 (10:58→20:51)
[2016-10-18] MEDS: MIRALAX PO SCH ×2 (10:58→17:02)
[2016-10-18] MEDS: ZANAFLEX PO SCH ×2 (10:58→20:50)
[2016-10-18] MEDS: VITAMIN D PO SCH (10:58)
[2016-10-18] MEDS: NS 1,000 ML IV SCH (12:41)
--- NOTE | 2016-10-18 12:52 | PROGRESS NOTE ---
DATE: 10/18/2016 SUBJECTIVE: Today, Mr. Ramírez refers to be feeling a whole lot better. Much stronger than before. OBJECTIVE: Vital Signs: Blood pressure is 115/89, pulse of 80, respirations 22 , temperature is 98.0 degrees. General: Mr. Ramírez is a 56-year-old male. He is in bed. He did not seem to be in any respiratory distress. He looks cachetic. Mucosa is slightly dry. Anicteric. Acyanotic. Neck is supple. Chest: Air entry is bilaterally reduced, more so to the right posterior lung field. There are no crepitations or rhonchi. Cardiovascular: Regular rate and rhythm. Abdomen is soft. Bowel sounds are present. Slightly hypoactive. [employer] : Patient is alert and oriented. No focal neurological deficit. Chest wall shows remarkable deformity consistent with severe scoliosis. LABORATORY DATA: WBC is 6.22, hemoglobin is 10.5, platelet count of 246,000. Sodium is 135, potassium is 4.8, chloride is 96, bicarb is 29. Creatinine 0.6. Prealbumin is 11.6, which is low. Vitamin D is 7.9 which is low. Patient's ferritin was 73. ASSESSMENT: 1. Extremely poor appetite with failure to thrive. The patient has been started on Mirtazapine and Megace. According to him, his appetite is a little bit better this morning. He has been able to eat part of his breakfast. The patient has also been evaluated by a carbon paper interleafer. Patient has been already evaluated by dietitian. Will go by the recommendations that have been provided. 2. We will also continue to encourage the patient to maximize his oral intake. 3. Normocytic anemia with iron deficiency. We will give another dose of Venofer today. 4. Bladder mucosa lesion. Patient has been evaluated by urology, and there is the plan for possible cystoscopy with biopsies. 5. Severe depression. The patient is on Trintellix. We have added Mirtazapine today, which will help both with the depression and as an appetite stimulant. 6. Clinical dehydration. Patient is doing a whole lot better. 7. Chronic pancreatitis on CT scan. The patient does not have any symptoms of this. 8. Constipation. We will continue to address this more symptomatically. 9. Vitamin D deficiency. We will replace this. 10. Severe scoliosis with compromised pulmonary physiology. 11. End stage COPD. patient follows up with Dr Becker. He still smokes. In general, Mr. Ramírez refers to be feeling a little better. I think his main problem is severe protein calorie malnutrition, which we are addressing with the help of the carbon paper interleafer. He also does have some lesions in the bladder which was picked up on the CT scan. The patient is pending Pulmonary Medicine evaluation to clear him for the urological intervention. We are pending Dr. Becker to evaluate the patient today. cc: David Yoo MD MTD
[2016-10-18] MEDS ORDERED: VENOFER 300 MG in NS 250 ML IV ONE (13:00)
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
[2016-10-18] MEDS ORDERED: KEFZOL 1 GM/D5W 1 GM/50 ML IVPB ONE (14:21)
[2016-10-18] MEDS ORDERED: NEOSPORIN G.U. IRRIGANT ONE (14:29)
[2016-10-18] MEDS ORDERED: DIPRIVAN 1% ONE (15:02)
--- NOTE | 2016-10-18 15:36 | Diag Imaging Result Doc PS360 ---
CHEST-1 VIEW - 10/18/2016 INDICATION: SOB TECHNIQUE: COMPARISON: 10/16/2016 FINDINGS: Stable severe scoliosis. Stable significant: Under the right diaphragm. Stable right hemidiaphragm elevation. Stable cardiomegaly. There is a right PICC line with the catheter tip at the cavoatrial junction. There may be a small focal infiltrate in the left midlung, indeterminate. IMPRESSION: Possible infiltrate in the left midlung. Electronically signed by Brandon Perkins 10/18/2016 3:34 PM
--- NOTE | 2016-10-18 15:40 | OPERATIVE NOTE ---
PROCEDURE DATE: 10/18/2016 PREOPERATIVE DIAGNOSIS: Enlarged prostate with obstructed voiding, abnormal bladder on CT scan. POSTOPERATIVE DIAGNOSES: 1. Enlarged prostate with obstructed voiding, abnormal bladder on CT scan. 2. Trabeculated bladder with a large amount of proteinaceous, mucous, and stone debris in the bladder. PROCEDURES PERFORMED: 1. Cystoscopic examination. 2. Bilateral retrograde ureteral pyelogram. 3. Removal of debris from the bladder with bladder irrigation. INDICATION FOR PROCEDURE: This 56-year-old male with severe scoliosis and increased thoracic kyphosis with severe protein calorie malnutrition was noted on CT scan to have a possible bladder mass. DESCRIPTION OF PROCEDURE: After informed consent was obtained from the patient and him receiving IV antibiotics, he was taken to the main OR cystoscopy room and placed in the supine position. General anesthesia via laryngeal mask was achieved. He was then placed in the low lithotomy position, and prepped and draped in the usual sterile fashion for cystoscopic exam. A 21-Bur[place]ian cystoscope was passed through the patient's urethra, prostate, and into the bladder, with findings as noted above. An 8-[place] cone-tipped catheter was passed through the cystoscope, engaged in the left ureteral orifice. Contrast was injected. Right side was accomplished similarly. 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 There were no filling defects in the collecting system. On the right side, the kidney was in the more normal position, but somewhat malrotated. There were no filling defects noted. After the retrogrades were performed, a Shane syringe was used to pull out the proteinaceous and mucus-like material, along with several stones. This material was discarded. The bladder was then irrigated with 2 L of fluid. The bladder was noted to have normal ureteral orifices bilaterally, with grade 3 trabeculations and a large wide-mouthed diverticulum on the left lateral wall. His prostate had coapting lateral lobes, elevated bladder neck, length approximately 3.5 to 4 cm. His anterior urethra was without strictures. After the bladder irrigation was completed, the bladder was drained. The cystoscope was removed. A rectal exam was performed that revealed impacted stool in the rectum. The prostate was about 40 g, smooth, and symmetric. He tolerated the procedure well. Estimated blood loss was zero. He was taken to the recovery room in good condition. cc: Jas Martines MD
[2016-10-18] MEDS: LIPOSYN 20% 250 ML IV SCH (16:00)
[2016-10-18] MEDS ORDERED: XYLOCAINE-MPF 2% ONE (16:33)
[2016-10-18] MEDS ORDERED: LR 1,000 ML ONE (16:33)
[2016-10-18] MEDS: FLOMAX PO SCH (20:51)
[2016-10-18] MEDS: HYDROXYZINE PO SCH (20:51)
[2016-10-18] MEDS: REMERON PO SCH (20:51)
[2016-10-19] MEDS: OXYCONTIN PO PRN ×4 (01:03→18:33)
[2016-10-19 03:25] LABS: ALLEN TEST YES; BE 6.7 mmoll (-3.0-3.0); BLOOD TYPE ARTERIAL; DRAW SITE R RADIAL; METHB 1.5 % (0.0-1.5); PO2(98.6) 120 mmHg (60-100); SAMPLE BLOOD; SAO2 98.7 % (95.0-100.0); THB 9.4 g/dL (11.5-17.4); pH(98.6) 7.41 (7.35-7.45)
[2016-10-19 03:26] LABS: MODALITY CANNULA
[2016-10-19 03:27] LABS: PCO2(98.6) 51 mmHg (35-45)
--- NOTE | 2016-10-19 08:01 | Diag Imaging Result Doc PS360 ---
EXAM: RETROGRADES 2 OR 3 FILMS HISTORY: BLADDER STONES/DEBRI TECHNIQUE: 30 images, bilateral retrograde pyelography COMMENT: There is hyperdense material lobe pre-existing in the distal colon which may be due to barium or other contrast. There is free retrograde flow of contrast in both ureters. The collecting systems are fairly normal considering distortion due to the patient's severe scoliosis. There is no evidence of obstruction. There is an apparent vascular impression on the mid left ureter. There are calcifications overlying the right collecting system which are presumably due to the pancreatic calcifications seen on the CT scan of 10/16/2016. IMPRESSION: No evidence of obstruction or filling defects in the urinary tracts. Electronically signed by Atul Eldridge 10/19/2016 7:59 AM
[2016-10-19] MEDS: MEGACE LIQUID PO SCH ×2 (08:45→20:07)
[2016-10-19] MEDS: MIRALAX PO SCH (08:45)
[2016-10-19] MEDS: CLINIMIX E 4.25%-5% SOLUTION 1,000 ML IV SCH ×2 (08:45→23:03)
[2016-10-19] MEDS: KLONOPIN PO SCH ×3 (08:46→16:24)
[2016-10-19] MEDS: VITAMIN D PO SCH (08:46)
[2016-10-19] MEDS: DALIRESP PO SCH (08:47)
[2016-10-19] MEDS: NS 1,000 ML IV SCH ×2 (08:47→16:49)
[2016-10-19] MEDS: ZANAFLEX PO SCH ×2 (08:47→20:07)
[2016-10-19 09:10] LABS: MANUAL DIFF NEEDED? NO
[2016-10-19 09:13] LABS: BASO% 0.1 % (0.0-0.8); EOS# 0.12 X1000 (0.0-0.7); EOS% 1.6 % (0.0-10.0); HEMATOCRIT 30.5 % (42.0-52.0); IMM GRAN# 0.02 X1000 (0.0-0.04); IMM GRAN% 0.3 % (0.0-0.5); LYMPH# 1.06 X1000 (1.2-3.4); MCH 28.7 PG (27-31); MCHC 32.8 g/dL (33-37); MCV 87.4 FL (81-99); MONO# 0.57 X1000 (0.11-0.59); MONO% 7.5 % (1.7-9.3); MPV 10.1 FL (7.4-10.4); NEUT% 76.5 % (42.2-75.2); PLT 220 X1000 (130-400); RBC 3.49 XMIL (4.7-6.1)
[2016-10-19 09:37] LABS: AGAP 9; BUN 19 mg/dL (8-22); CALCIUM 8.2 mg/dL (8.8-10.2); CHLORIDE 92 mmol/L (98-107); COSMO 268; POTASSIUM 4.3 mmol/L (3.5-5.1); SODIUM 130 mmol/L (136-145); TCO2 29 mmol/L (25-35)
[2016-10-19] MEDS ORDERED: DIFLUCAN PO PRN (10:25)
[2016-10-19] MEDS ORDERED: NON-FORMULARY MED (Vortioxetine Hydrobromide [Trintellix] 20 MG) PO SCH (10:30)
[2016-10-19] MEDS: VORTIOXETINE HYDROBROMIDE PO SCH (11:16)
--- NOTE | 2016-10-19 11:19 | PROGRESS NOTE ---
DATE: 10/19/2016 SUBJECTIVE: Today, Mr. Ramírez refers to be doing a whole lot better. He said he ate almost all his breakfast today. He underwent cystoscopy yesterday by a Dr. Martines and seems to have tolerated the procedure without any complications. OBJECTIVE: Vital signs: Blood pressure is 116/64, pulse of 64, respirations 17, and temperature is 98.4 degrees. General: Mr. Ramírez is a 56-year-old male. He is in bed, does not seems to be in any remarkable distress. HEENT: Mucosa anicteric and acyanotic, slightly dry. Cardiovascular: Regular rate and rhythm. Abdomen: Soft. No hepatosplenomegaly. Central Nervous System: Patient is alert and oriented. Musculoskeletal: Chest has a remarkable deformity, consistent with severe scoliosis. LABORATORY DATA: WBC is 7.57, hemoglobin is 10.0, and platelet count is 220,000. Chemistry is also reviewed. Sodium is 130, potassium 4.5, chloride 92, and bicarbonate is 28. Vitamin D was 7.9. ASSESSMENT: 1. Failure to thrive secondary to poor appetite. Patient was has been started on mirtazapine and Megace, and his appetite seems to be improving. We will continue encouraging him with enteral feeding. 2. Normocytic anemia with iron deficiency. Patient is status post 2 transfusions of Venofer. We will start him on p.o. iron supplements. 3. Bladder mucosal lesion on CT scan. Patient is status post cystoscopy examination and was found to have enlarged prostate with obstructive voiding and also trabeculated bladder with large amount of proteinaceous, mucous, and stone debris. 4. Severe depression. 5. Clinical dehydration. This is improved. 6. Constipation. Improved. 7. Vitamin D deficiency. We will continue with oral replacement. 8. Severe scoliosis with compromised pulmonary physiology noted. 9. End-stage chronic obstructive pulmonary disease. The patient continues to actively smoke. He has been counseled. So, in general, I think Mr. Ramírez is doing a little better. Hydration status is improving. Seems to have chronic hyponatremia. We will do urine studies to better characterize this. We are going to continue encouraging him with enteral feeding. Hopefully, we might be able to discharge him soon. As his enteral feeding continues to improve, we will be cutting down on the Clinimix with lipid infusion. cc: David Yoo MD
[2016-10-19] MEDS: LIPOSYN 20% 250 ML IV SCH (16:25)
[2016-10-19] MEDS ORDERED: SAMSCA PO ONE (17:10)
[2016-10-19] MEDS: HYDROXYZINE PO SCH (20:07)
[2016-10-19] MEDS: REMERON PO SCH (20:07)
[2016-10-19] MEDS: FLOMAX PO SCH (20:08)
[2016-10-19] MEDS: NICODERM PATCH TD PRN (20:11)
[2016-10-20] MEDS: OXYCONTIN PO PRN ×4 (00:42→19:06)
[2016-10-20] MEDS: NS 1,000 ML IV SCH ×2 (05:31→16:18)
[2016-10-20 07:04] LABS: AGAP 9; BUN 19 mg/dL (8-22); CALCIUM 8.6 mg/dL (8.8-10.2); CHLORIDE 100 mmol/L (98-107); COSMO 281; POTASSIUM 4.7 mmol/L (3.5-5.1); SODIUM 138 mmol/L (136-145); TCO2 29 mmol/L (25-35)
[2016-10-20] MEDS: VORTIOXETINE HYDROBROMIDE PO SCH (08:30)
[2016-10-20] MEDS: MEGACE LIQUID PO SCH ×2 (08:31→21:57)
[2016-10-20] MEDS: MIRALAX PO SCH (08:31)
[2016-10-20] MEDS: KLONOPIN PO SCH ×3 (08:31→16:18)
[2016-10-20] MEDS: ZANAFLEX PO SCH ×2 (08:31→21:57)
[2016-10-20] MEDS: DALIRESP PO SCH (08:31)
[2016-10-20] MEDS: VITAMIN D PO SCH (08:31)
[2016-10-20] MEDS: CLINIMIX E 4.25%-5% SOLUTION 1,000 ML IV SCH (13:00)
--- NOTE | 2016-10-20 15:27 | PROGRESS NOTE ---
DATE: 10/20/2016 Today Mr. Ramírez refers to be doing a lot better. Denies any complaint. He said his appetite has gotten a little better but he has realized that breakfast is good and then as the day progresses appetite gets down. OBJECTIVELY: Vitals: Blood pressure is 123/78, pulse of 102, respirations 14, temperature is 97.4 degrees. General: Mr. Ramírez is a 56-year-old male. He was in bed. Not in any distress. HEENT: Mucosa is pink and moist. Anicteric. Acyanotic. Neck: Supple. HEENT: Mucosa is pink and moist. Anicteric. Acyanotic. Neck: Supple. Chest: Good air entry bilaterally. No crepitations. No rhonchi. Cardiovascular: Regular rate and rhythm. Abdomen: Soft. Extremities: No pedal edema. Musculoskeletal: Patient has remarkable chest deformity consistent with severe scoliosis. LABORATORY DATA: Chemistry is reviewed. Sodium is up to 138, potassium 4.7, chloride is 100, bicarb is 29, glucose is 145. ASSESSMENT: 1. Failure to thrive secondary to poor appetite. 2. Normocytic anemia with iron deficiency. Patient is status post 2 IV iron transfusion. We will continue with oral supplements. 3. Bladder mucosa lesion on CT scan. Patient is status post cystoscopic examination. Found to have enlarged prostate with obstructive voiding and also trabeculated bladder with large amount of proteinaceous mucosa and stone debris. 4. Severe depression. 5. Clinical dehydration on presentation. Improved. 6. Vitamin D deficiency. We will continue to replace. 7. Severe scoliosis with compromised pulmonary physiology. 8. End-stage COPD. 9. Active tobacco use. So, in general I think Mr. Ramírez is doing better. He is now completely hydrated. He is tolerating some oral feeding. We will discontinue the Clinimix and lipid infusion. I think by Saturday we should be able to discharge Mr. Ramírez. cc: David Yoo MD
[2016-10-20] MEDS ORDERED: MILK OF MAGNESIA PO ONE (15:55)
[2016-10-20] MEDS: LIPOSYN 20% 250 ML IV SCH (16:18)
[2016-10-20] MEDS: FLOMAX PO SCH (21:57)
[2016-10-20] MEDS: HYDROXYZINE PO SCH (21:57)
[2016-10-20] MEDS: REMERON PO SCH (21:57)
[2016-10-20] MEDS: COLACE PO SCH (22:00)
[2016-10-20] MEDS: FERROUS SULFATE PO SCH (22:00)
[2016-10-21] MEDS: OXYCONTIN PO PRN ×4 (01:21→19:38)
[2016-10-21] MEDS: FERROUS SULFATE PO SCH ×3 (07:39→19:40)
[2016-10-21] MEDS: VORTIOXETINE HYDROBROMIDE PO SCH ×2 (07:39→09:49)
[2016-10-21] MEDS: COLACE PO SCH ×3 (07:39→19:39)
[2016-10-21] MEDS: ZANAFLEX PO SCH ×3 (07:39→19:39)
[2016-10-21] MEDS: KLONOPIN PO SCH ×4 (07:39→19:39)
[2016-10-21] MEDS: MEGACE LIQUID PO SCH ×3 (07:39→19:40)
[2016-10-21] MEDS: DALIRESP PO SCH ×2 (07:39→09:49)
[2016-10-21] MEDS: REMERON PO SCH ×2 (07:40→19:40)
[2016-10-21] MEDS: MIRALAX PO SCH ×2 (07:40→09:50)
[2016-10-21] MEDS: VITAMIN D PO SCH ×2 (07:40→09:50)
[2016-10-21] MEDS: NICODERM PATCH TD PRN (07:53)
[2016-10-21] MEDS ORDERED: DULCOLAX PR PRN (13:35)
[2016-10-21] MEDS: COMBIVENT RESPIMAT INHALER INH SCH ×2 (17:16→20:10)
--- NOTE | 2016-10-21 17:50 | PROGRESS NOTE ---
DATE: 10/21/2016 SUBJECTIVE: A 56-year-old, who was admitted on 10/16/2016. His doctor is Dr. Lucas Sarabia. Primary provider Roxanne Beltre MD. Presented past being noncompliant with medication. He spent time on the ventilator. Had trouble with weaning off. Underwent a tracheostomy and was sent to [facility] which is now [facility] in [place] to their long-term facility, weaned off the ventilator. Reported at that time he had 14% lung function related to end-stage COPD. Reported that he now has around 35%. At any rate, the patient has overall failure to thrive. He was sent to the primary care provider to find out why he had rapid weight loss. However, weight loss appeared to be much more chronic in nature. The patient has slowly declining ability to ambulate, to work and to his overall quality of life, causing him to be depressed. His states most of the time he just sits in 1 position at home. He has started to have increased scoliosis and pain to the extent where his rib cage has moved over his hip and a chronic contracture of his neck, which is deviated to the right. The patient frankly at that time did not seem to want help. During admission interview, he stated that there was going to be nothing we could do for him. He has been worked up several times and we are not going to find anything. He is on depression medication, simply does not want to eat. Told his he no longer wanted to live in this condition. However, he did not express any suicidal ideation or plan to harm himself. CT of the abdomen was obtained in the emergency room which showed a 2 cm irregular nodule at the posterior bladder wall. Neoplasm could not be excluded. Severe scoliosis is otherwise stable from previous examinations. PAST MEDICAL HISTORY: 1. 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 2. Chronic pain medications. The patient previously has seen Dr. Gonzales who has moved to [place]. 3. Ischemic heart disease. 4. Hypertension. 5. Thoracic scoliosis with gibbus. 6. Chronic insomnia. 7. Anxiety. PROBLEMS: 1. He is admitted with failure to thrive, chronic weight loss which has been rapid over the last 4 months. His expressed a steep decline. Apparently he is eating a little better and doing better with some physical therapy. 2. Chronic obstructive pulmonary disease on home O2 is end-stage, but overall he has taken himself off some of his medications and inhalers. 3. Chronic opioid pain medication. 4. Ischemic heart disease. 5. Hypertension. 6. Thoracic scoliosis with gibbus noted. 7. Protein calorie malnutrition. He has normal albumin, very cachectic. He does have normal albumin though and he is trying to eat and apparently has improved. He is convinced he has going home soon. PHYSICAL EXAMINATION: General: Awake, alert, oriented x3. Vital signs: Temperature 98.1, pulse 86, respirations 17, blood pressure 116/76. Lungs: With decreased breath sounds both bases. Otherwise no wheezing. Cardiovascular: Regular rhythm and rate without murmur or S3. Abdomen: Soft. Skin: Is warm and dry. : Urine output over 6 L. LABORATORY: Reviewed from the 2nd and electrolytes from yesterday looked good. ASSESSMENT AND PLAN: 1. Failure to thrive secondary to poor appetite, poor nutrition. 2. Normocytic anemia. Iron deficiency. Patient is status post 2 IV iron transfusions. Continue oral supplements. 3. Bladder mucosal lesion on computed tomography scan. The patient status post cystoscopic examination. Found to have enlarged prostate with obstructive voiding and also trabeculated bladder with large amount of proteinaceous mucous and stone debris. 4. Severe depression. 5. Clinical dehydration, improving. 6. Vitamin D deficiency. Continue to replace. 7. Severe scoliosis, compromising pulmonary physiology. 8. End-stage chronic obstructive pulmonary disease. 9. Active tobacco. He is rehydrated. Look at discharge home. Continue physical therapy. I have reviewed his orders. I do not see any change at this point. He is on Megace 400 mg b.i.d., ipratropium albuterol 1 puff q.6, hydroxyzine 50 mg p.o. at bedtime, Diflucan 150 mg p.o. daily, ferrous sulfate 325 mg b.i.d., docusate sodium 100 mg b.i.d., Klonopin 0.5 mg t.i.d., vitamin D3 1000 units p.o. daily, Flomax 0.4 mg at bedtime, Daliresp 500 mcg daily, MiraLAX 17 g daily, oxycodone ER 20 mg q.6 hours. He does complain of some left-sided chest discomfort which is more sharp in nature and constant. No pressure sensation. cc: Derick Bonilla MD
[2016-10-21] MEDS: HYDROXYZINE PO SCH (19:39)
[2016-10-21] MEDS: FLOMAX PO SCH (19:40)
[2016-10-22] MEDS: COLACE PO SCH ×2 (00:42→08:44)
[2016-10-22] MEDS: HYDROXYZINE PO SCH (00:42)
[2016-10-22] MEDS: REMERON PO SCH (00:42)
[2016-10-22] MEDS: FLOMAX PO SCH (00:42)
[2016-10-22] MEDS: ZANAFLEX PO SCH ×2 (00:42→08:44)
[2016-10-22] MEDS: KLONOPIN PO SCH ×3 (00:42→13:44)
[2016-10-22] MEDS: MEGACE LIQUID PO SCH ×2 (00:42→08:45)
[2016-10-22] MEDS: FERROUS SULFATE PO SCH ×2 (00:43→08:43)
[2016-10-22] MEDS: OXYCONTIN PO PRN ×3 (01:39→13:43)
[2016-10-22 07:56] VITALS: BP 143/91
--- NOTE | 2016-10-22 08:00 | Diag Imaging Result Doc PS360 ---
CHEST-PORTABLE - 10/22/2016 INDICATION: abnormal exam TECHNIQUE: COMPARISON: 10/18/2016 FINDINGS: Stable right PICC line in good position. Stable significant right hemidiaphragm elevation with some adjacent atelectasis. There is new infiltrate along the lateral left midlung. No pneumothorax or significant effusion. Heart size is top normal. IMPRESSION: New, large infiltrate at the lateral left lung. Correlate clinically. Electronically signed by Brandon Perkins 10/22/2016 7:58 AM
[2016-10-22] MEDS: VITAMIN D PO SCH (08:43)
[2016-10-22] MEDS: DALIRESP PO SCH (08:44)
[2016-10-22] MEDS: VORTIOXETINE HYDROBROMIDE PO SCH (08:44)
[2016-10-22] MEDS: MIRALAX PO SCH (08:45)
[2016-10-22] MEDS: COMBIVENT RESPIMAT INHALER INH SCH (09:13)
--- NOTE | 2016-10-23 05:35 | DISCHARGE SUMMARY ---
ADMISSION DATE: 10/16/2016 DISCHARGE DATE: 10/22/2016 HISTORY OF PRESENT ILLNESS: This is a 56-year-old who has been noncompliant with medication. He spent time on a ventilator for a long time. Could not be wean. Underwent tracheostomy. Sent to [facility], which is now [facility] to their long-term facility. Weaned off the ventilator. Reported at the time to have 14% lung function related to end-stage COPD, reportedly around 35% at the present time. At any rate, the patient has had overall failure to thrive. He was sent by his primary care provider, which I believe is halima Simental but they mentioned it was Dr. Solorzano. He was sent over here because he has had rapid weight loss. However, his weight loss appears to be much more chronic in nature. The patient has a hospital bed at home. He is simply not eating much at all. Slowly declined in his ability to ambulate. Overall quality of life caused him to get depressed. Most of the time, he just sits in 1 position. He has increased gibbus and scoliosis to the extent where his right rib cage is moved over his hip. He has chronic contracture of his neck which is deviated to the right. The patient frankly does not seem to want help during the admission. In the interview, he stated there was going to be nothing we could do for him. He was very despondent. Admitted him to the hospital. PAST MEDICAL HISTORY: Summarized again: 1. End-stage COPD, on O2, status post tracheostomy and prolonged ventilator dependence in the past. 2. Chronic pain medications Dr. Gonzales was his doctor. No longer followed by the Pain Clinic. 3. Ischemic heart disease. 4. Hypertension. 5. Thoracic scoliosis with gibbus. 6. Chronic insomnia. 7. Anxiety. HOSPITAL COURSE: Patient admitted and we monitored his p.o. intake. Tried to increase nutrition. He appeared to have some trouble with constipation. Chest x-ray on 10/16/2014 with no acute abnormality. He does have a prominent scoliosis. Dr. Martines had seen him on 10/17/2016. He has end-stage COPD, enlarged prostate with obstructive voiding, bladder masses and nodules, which after cystoscopy, it was found there was no mass, just some trabeculations and enlarge prostate. Echocardiogram with Doppler on 10/17/2016, showed ejection fraction of 60%. Good left ventricular function. No significant valvular dysfunction. Normal right ventricular function. The patient, overall, was eating better and requested to go home on 10/22/2016. He understands, and I talked to his , I would like him to get Home Health. He also understands that he needs to be aggressive on his p.o. intake and needs to be using his muscles if there is any chance for him to get stronger. DISCHARGE MEDICATIONS: He will be on Combivent Respimat inhaler 1 q.6 hours p.r.n., Dulcolax 10 mg p.r. p.r.n., vitamin D 1000 units daily, Klonopin 0.5 mg t.i.d., Colace 100 mg b.i.d., ferrous sulfate 325 mg b.i.d., Diflucan 150 mg p.o. daily p.r.n. rash, hydroxyzine 50 mg p.o. at bedtime, Megace liquid 400 mg b.i.d., Remeron 15 mg at bedtime, NicoDerm patch 14 mg patch daily for a couple of weeks, OxyContin 20 mg p.o. q.6 hours p.r.n., MiraLAX 17 g p.o. daily, roflumilast 500 mcg p.o. daily, Flomax 0.4 mg daily, Zanaflex 4 mg b.i.d., Trintellix 10 mg, take as instructed before. cc: Derick Bonilla MD
== END 2016-10-22 15:05 | disposition home or self-care (01) ==
LOC: ED 11:03 → 3N 21:14 → OBSVTOIN 21:14 → INTOOBSV 21:14 → SUATTDRO 21:14
PROVIDERS: ATTEND Emergency Medicine

== ENCOUNTER 2016-12-23 10:39 | Observation (INO) ==
[2016-12-23 12:23] LABS: MANUAL DIFF NEEDED? NO
[2016-12-23 12:27] LABS: BASO% 0.4 % (0.0-0.8); EOS# 0.27 X1000 (0.0-0.7); EOS% 3.8 % (0.0-10.0); HEMATOCRIT 36.3 % (42.0-52.0); LYMPH# 1.46 X1000 (1.2-3.4); LYMPH% 20.4 % (20.5-51.1); MCH 28.8 PG (27-31); MCHC 33.1 g/dL (33-37); MCV 87.3 FL (81-99); MONO# 0.61 X1000 (0.11-0.59); MONO% 8.5 % (1.7-9.3); MPV 9.7 FL (7.4-10.4); NEUT% 66.9 % (42.2-75.2); PLT 249 X1000 (130-400); RBC 4.16 XMIL (4.7-6.1)
[2016-12-23 13:00] LABS: URINE CULTURE NEEDED? NO; URINE MICRO REVIEW NEEDED? NO; URINE SOURCE CATH
[2016-12-23 13:06] LABS: BILIRUBIN URINE NEGATIVE (NEGATIVE); BLOOD URINE NEGATIVE (NEGATIVE); COLOR YELLOW; GLUCOSE URINE NEGATIVE (NEGATIVE); LEUKOCYTES URINE NEGATIVE (NEGATIVE); NITRITE URINE NEGATIVE (NEGATIVE); PH URINE 6.5; PROTEIN URINE NEGATIVE (NEGATIVE); TURBIDITY URINE CLEAR (CLEAR); UROBILINOGEN URINE NORMAL (NORMAL)
[2016-12-23 13:08] LABS: UR EPITHELIAL CELLS <10 /HPF (<10); URINE BACTERIA NEGATIVE /HPF; URINE RBC <10 /HPF (<10); URINE WBC <10 /HPF (<10)
[2016-12-23] MEDS ORDERED: NS 1,000 ML IV ONE (13:23)
[2016-12-23] MEDS ORDERED: SAMSCA PO ONE (13:25)
[2016-12-23] MEDS ORDERED: SODIUM CHLORIDE PO ONE (13:25)
[2016-12-23 13:54] LABS: INR 1.02; PROTIME 10.7 Seconds (9.2-11.7)
--- NOTE | 2016-12-23 13:58 | PROVIDER DOCUMENTATION ---
This chart was entered by Paris Suero Scribe, acting as scribe for Bill Urbano MD. HPI-General Adult - General Chief Complaint: Abdominal Pain Stated Complaint: ABD PAIN,PROSTATE PROBLEM Time Seen by Provider: 12/23/16 10:53 Source: patient Allergies/Adverse Reactions: Patient Allergies Allergy/AdvReac Type Severity Reaction Status Date / Time No Known Allergies Allergy Verified 12/23/16 12:21 Home Medications: Home Medication List Medication Instructions Recorded Confirmed Last Taken Type Roflumilast [Daliresp] 500 microgm PO DAILY 02/19/15 10/17/16 10/16/16 08:00 History 1 Clonazepam 0.5 mg PO TID 10/16/16 10/16/16 10/16/16 08:00 History Fluconazole [Diflucan] 150 mg PO PRN PRN 10/16/16 10/16/16 Unknown History Hydroxyzine HCl 50 mg PO HS 10/16/16 10/17/16 10/15/16 21:00 History Oxycodone E.r. [Oxycontin] 20 mg PO 4XDAY 10/16/16 10/16/16 10/16/16 08:00 History Tizanidine HCl 4 mg PO BID 10/16/16 10/17/16 10/16/16 11:00 History 1 Vortioxetine Hydrobromide 10 mg PO DAILY 10/17/16 10/17/16 10/16/16 11:00 History [Trintellix] 1 Bisacodyl [Dulcolax] 10 mg NJ Q12H PRN PRN #40 supp 10/22/16 Unknown Rx Cholecalciferol (Vit D3) [Vitamin 1,000 unit PO DAILY #30 tablet 10/22/16 Unknown Rx D3] Docusate Sodium [Colace] 100 mg PO BID #60 capsule 10/22/16 Unknown Rx Ferrous Sulfate 325 mg PO BID #60 tablet 10/22/16 Unknown Rx Ipratropium/Albuterol INH 1 puff INH RTQ6H #120 inhaler 10/22/16 Unknown Rx [Combivent Respimat Inhaler] Megestrol Acetate [Megace Liquid] 400 mg PO BID #60 udc 10/22/16 Unknown Rx Mirtazapine [Remeron] 15 mg PO QHS #30 tablet 10/22/16 Unknown Rx Nicotine Patch [Nicoderm Patch] 14 mg TD DAILY PRN PRN #30 10/22/16 Unknown Rx patch.td24 Polyethylene Glycol 3350 [Miralax] 17 gm PO DAILY #30 powder, packet 10/22/16 Unknown Rx Tamsulosin [Flomax] 0.4 mg PO QHS #30 capsule 10/22/16 Unknown Rx - History of Present Illness -Gen Adult Nature of Presenting Problems: Pt is a 56 year old male who came to the ED with a cc of urinary retention for three days. Pt recently started lunesta and thought that was causing the urinary retention so he stopped taking it. Location of Pain/Injury: reports: abdomen Pain Radiation: reports: no radiation Quality of Pain: reports: pressure Onset/Duration: reports: 3 days ago Timing: reports: still present Context/Activities at Onset: reports: none Modifying Factors: improves with: nothing Similar Symptoms Previously?: Yes Recently seen or treated by another doctor?: No Review of Systems - Adult - REVIEW OF SYSTEMS - ADULT Constitutional: denies: chills, fever Eyes: reports: no symptoms reported Ears, Nose, Mouth & Throat: reports: no symptoms reported Cardiovascular: denies: chest pain, syncope Respiratory: denies: cough, shortness of breath Gastrointestinal: reports: abdominal pain. denies: diarrhea, nausea, vomiting Genitourinary: reports: urinary retention. denies: flank pain, hesitency Musculoskeletal: reports: no symptoms reported Integumentary: reports: no symptoms reported Neurological: reports: no symptoms reported Psychiatric: reports: no symptoms reported Endocrine: reports: no symptoms reported Hematologic/Lymphatic: reports: no symptoms reported Allergic/Immunologic: reports: no symptoms reported All Other Systems: Reviewed and Negative Past History - Adult - PAST MEDICAL HISTORY-ADULT Review of Records: reports: Old Records Reviewed, Nursing Assessment Review Major Childhood Illnesses: reports: denies history Cardiovascular: reports: CHF, HTN Respiratory: reports: COPD Gastrointestinal: reports: denies history Obstetrical/Gynecological: reports: denies history Genitourinary: reports: denies history Musculoskeletal: reports: denies history Neurological: reports: Seizures/Epilepsy Endocrine/Immune: reports: denies history Other Conditions: reports: MRSA - PRIOR SURGERIES/PROCEDURES Surgical/Procedure History: reports: other (finger amputation) - IMMUNIZATION STATUS Childhood Immunizations: See Nurse Assessment Flu Vaccine: See Nurse Assessment - FAMILY HISTORY Family History: reviewed, not pertinent Physical Exam-General - CONSTITUTIONAL General Appearance: appears well, alert, cachetic - EYES Eyes: PERRL/EOMI, pink conjunctivae - HEAD, EARS, NOSE, MOUTH & THROAT HENMT: dental decay - NECK Neck: non-tender, full range of motion - RESPIRATORY Respiratory: chest non-tender, lungs clear - CARDIOVASCULAR Cardiovascular: normal peripheral pulses, regular rate, rhythm - GASTROINTESTINAL (ABDOMEN) Abdominal Exam: normal bowel sounds, non tender, soft. negative: mass - MUSCULOSKELETAL Back Exam: scoliosis Extremity: normal range of motion, non-tender - SKIN Integumentary: normal color, normal turgor - NEUROLOGIC Neurologic: grossly normal - PSYCHIATRIC Psych/Mental Status: normal mood/affect, normal thought content, normal thought process, oriented x 3 Progress - PLAN OF CARE/RESULTS Progress/Plan/Lab Results: Vital Signs - 8 hr 12/23/16 10:46 Temperature 97.8 F Pulse Rate 77 Respiratory Rate 18 Blood Pressure 157/97 O2 Sat by Pulse Oximetry 100 Orders Category Date Time Status Stewart Cath Insertion ORDERED Care 12/23/16 10:53 Active CBC WITH ELECTRONIC DIFF [HEME] Stat Lab 12/23/16 10:54 Uncollected COMPREHENSIVE METABOLIC PANEL [CHEM] Stat Lab 12/23/16 10:[address] W/POSS RFLX CULT [URINALYSIS] Stat Lab 12/23/16 10:54 Uncollected Result Diagrams: 12/23/16 11:55 12/23/16 11:55 - CONSULTS/PCP/HOSPITALIST Notification #1 *Consult/PCP/Hospitalist*: hospitalist Departure - Departure Date of Disposition Decision: 12/23/16 Time of Disposition Decision: 13:27 DIAGNOSIS: Hyponatremia, Urinary retention Disposition: ADMITTED INPATIENT 09 Certified Medical Emergency: Emergent Condition: Serious Referrals and Follow-Ups: None,PCP [Primary Care Provider] - - Critical Care Note This patient required my direct & personal management of CC.: No Attestation - Physician/ DANGELO Attestation Patient care was provided by Advanced Practice Provider:: No The physician spent face to face time with patient:: Yes Advanced Practice Provider documentation review:: Supervising physician onsite and consulted in the evaluation and care of this patient. The physician did have a face to face encounter with the patient. This chart was documented by the indicated scribe, (Paris Suero Scribe) and accurately reflects the services I performed and decisions made by me, Bill Urbano MD, as attested by the provider's signature.
--- NOTE | 2016-12-23 14:52 | HISTORY AND PHYSICAL ---
HISTORY OF PRESENT ILLNESS: This is a 56-year-old who is well-known to our service. He presented today stating that for the last week or so, his #1 complaint is that he is not urinating like he used to. He has had frequent urination, and not much, slow stream. He feels like the Flomax is not working anymore. He has seen Dr. Gurvinder Martines before. We put a Stewart catheter in him at his request. The 2nd problem is that he is constipated, and I suspect it may be related. He has had bowel movements, but he feels like he is still full. The 3rd problem is his stomach is burning, and he feels like that if he did not come in to the hospital, he told his he was concerned. It has been going on for a couple weeks. He was seen by Dr. Beltre, I believe. PAST MEDICAL HISTORY: 1. He has chronic obstructive pulmonary disease, which is advanced stage. At 1 point, they thought it was end-stage. He is on home O2. 2. Chronic pain medications. He was seeing Dr. Gonzales, but he moved, so since that time he has had to adjust. I think he is going to another pain clinic. 3. Ischemic heart disease. 4. Hypertension. 5. Thoracic sclerosis, gibbus. 6. Chronic insomnia. 7. Anxiety. PAST SURGICAL HISTORY: Tracheostomy in the past, and then he had a tracheostomy takedown. He has had a right index finger traumatic amputation. ALLERGIES: No known drug allergies. SOCIAL HISTORY: Lives with his in [place]. Heavy smoker. He has had overall failure to thrive, and they had encouraged him to eat. I think on recent admission they had performed kidney stone extractions. In the past he did abuse alcohol. Apparently, he is off alcohol at this time. He has suffered from anxiety and depression. FAMILY HISTORY: Positive for coronary artery disease. REVIEW OF SYSTEMS: Constitutional: states he has actually gained weight. HEENT: Unremarkable. Respiratory: Status has been stable. No cough. No fever noted, although he feels like he has had subjective fever. Cardiovascular: No chest pain or tachy palpitation. Gastrointestinal and Genitourinary: Overall, abdomen feels like it is burning, does not seem to be necessarily related to eating. He feels like he has frequent urination. I am concerned that his bladder is emptying too often, and poor stream. VITAL SIGNS: Temperature 97.8 degrees, pulse 77, respirations 18, blood pressure 157/97, O2 saturation 100%. Height 5 feet 10 inches, weight 125 pounds. LABORATORY STUDIES: White count 7140, hematocrit 36, platelet count 249,000. Note, he had a low sodium, which really does not fit exam. We are having this rechecked. His sodium was 100, potassium 4.6, chloride 97, bicarb 29, BUN 13, creatinine 0.8. Liver functions unremarkable. Albumin 4.3. Pro time 10.7, INR 1.02. Urinalysis unremarkable. A Stewart catheter is placed. ASSESSMENT AND PLAN: 1. Benign prostatic hypertrophy suspected. He may have some underlying prostatitis. I will put him on some Levaquin. He has a Stewart catheter in place. We will put him on Flomax, and maybe see what his regimen is. We may add a hormone jt as well, maybe Proscar or something else. 2. Advanced chronic obstructive pulmonary disease. His air and gas exchange seem to be good. He is on home O2. 3. Chronic opioid pain use in the past. I do not know where his status is at present time. 4. History of ischemic heart disease. No complaints of chest pain or signs of active cardiac ischemia. 5. Hypertension. 6. Thoracic sclerosis and gibbus noted. 7. Depression and anxiety. 8. Protein calorie malnutrition. Actually, he made some advances in his nutrition and p.o. intake. 9. He has had a bladder cyst noted on previous CT. Dr. Martines has been following him. Last discharge was on 10/22/2016. At that time, he came in, I think, with respiratory trouble, and was on the ventilator for a good long time. Underwent a tracheostomy. Sent to [facility], and was at [facility] in [place] for a long time. Weaned off the ventilator. Tracheostomy taken down. Was reported to have 14% lung function, end-stage chronic obstructive pulmonary disease. So overall, appears he is getting stronger and he is eating a little better. cc: Derick Bonilla MD
[2016-12-23 14:56] LABS: AGAP 16; BUN 12 mg/dL (8-22); CALCIUM 8.9 mg/dL (8.8-10.2); CHLORIDE 94 mmol/L (98-107); COSMO 272; POTASSIUM 4.7 mmol/L (3.5-5.1); SODIUM 136 mmol/L (136-145); TCO2 26 mmol/L (25-35)
[2016-12-23] MEDS ORDERED: CITRATE OF MAGNESIA PO ONE (14:59)
[2016-12-23 15:04] LABS: ALBUMIN 4.3 g/dL (3.5-5.0); TOTAL BILIRUBIN 0.27 mg/dL (0.20-1.00)
[2016-12-23 15:05] LABS: ALKALINE PHOSPHATASE 81 U/L (32-122); GOT 15 U/L (10-34)
[2016-12-23 15:06] LABS: GPT 10 U/L (10-44)
[2016-12-23] MEDS ORDERED: TYLENOL PO PRN (16:44)
[2016-12-23] MEDS ORDERED: DULCOLAX PR PRN (16:44)
[2016-12-23] MEDS ORDERED: NICODERM PATCH TD PRN (16:44)
[2016-12-23] MEDS ORDERED: ZOFRAN IV PRN (16:44)
[2016-12-23] MEDS: OXYCONTIN PO SCH ×2 (17:59→21:50)
[2016-12-23] MEDS: KLONOPIN PO SCH (18:00)
[2016-12-23] MEDS: NS 1,000 ML IV SCH (18:00)
[2016-12-23] MEDS: FLOMAX PO SCH (20:07)
[2016-12-23] MEDS: ZANAFLEX PO SCH (20:07)
[2016-12-23] MEDS: MEGACE LIQUID PO SCH (20:07)
[2016-12-23] MEDS: FERROUS SULFATE PO SCH (20:08)
[2016-12-23] MEDS: COLACE PO SCH (20:09)
[2016-12-23] MEDS ORDERED: HYDROXYZINE PO SCH (21:00)
[2016-12-23] MEDS ORDERED: REMERON PO SCH (21:00)
[2016-12-23] MEDS: DUONEB (A & A) INH SCH (21:05)
[2016-12-23] MEDS ORDERED: MYLICON PO ONE (23:40)
[2016-12-23 23:49] LABS: URINE CULTURE NEEDED? NO; URINE MICRO REVIEW NEEDED? NO; URINE SOURCE CATH
[2016-12-23 23:56] LABS: BILIRUBIN URINE NEGATIVE (NEGATIVE); BLOOD URINE NEGATIVE (NEGATIVE); COLOR STRAW; GLUCOSE URINE NEGATIVE (NEGATIVE); LEUKOCYTES URINE NEGATIVE (NEGATIVE); NITRITE URINE NEGATIVE (NEGATIVE); PH URINE 5.5; PROTEIN URINE NEGATIVE (NEGATIVE); SP GRAVITY URINE 1.001; TURBIDITY URINE CLEAR (CLEAR); UR EPITHELIAL CELLS <10 /HPF (<10); URINE BACTERIA NEGATIVE /HPF; URINE RBC <10 /HPF (<10); URINE WBC <10 /HPF (<10); UROBILINOGEN URINE NORMAL (NORMAL)
[2016-12-24] MEDS: DUONEB (A & A) INH SCH ×2 (03:12→09:42)
[2016-12-24] MEDS: NS 1,000 ML IV SCH (05:40)
[2016-12-24 06:52] LABS: MANUAL DIFF NEEDED? NO
[2016-12-24 06:58] LABS: BASO% 0.3 % (0.0-0.8); EOS# 0.35 X1000 (0.0-0.7); EOS% 6.1 % (0.0-10.0); HEMATOCRIT 35.8 % (42.0-52.0); HEMOGLOBIN 11.7 g/dL (14.0-18.0); LYMPH# 1.91 X1000 (1.2-3.4); MCH 28.7 PG (27-31); MCHC 32.7 g/dL (33-37); MONO# 0.58 X1000 (0.11-0.59); MPV 9.7 FL (7.4-10.4); NEUT% 50.6 % (42.2-75.2); PLT 236 X1000 (130-400); RBC 4.07 XMIL (4.7-6.1)
[2016-12-24 07:21] LABS: AGAP 12; ALBUMIN 3.9 g/dL (3.5-5.0); ALKALINE PHOSPHATASE 75 U/L (32-122); BUN 9 mg/dL (8-22); CALCIUM 8.8 mg/dL (8.8-10.2); CHLORIDE 100 mmol/L (98-107); COSMO 275; GOT 14 U/L (10-34); GPT 10 U/L (10-44); POTASSIUM 4.5 mmol/L (3.5-5.1); SODIUM 138 mmol/L (136-145); TCO2 26 mmol/L (25-35); TOTAL BILIRUBIN 0.24 mg/dL (0.20-1.00); TOTAL PROTEIN 6.3 g/dL (6.3-8.3)
[2016-12-24] MEDS: ZANAFLEX PO SCH (08:13)
[2016-12-24] MEDS: COLACE PO SCH (08:13)
[2016-12-24] MEDS: KLONOPIN PO SCH ×2 (08:13→13:57)
[2016-12-24] MEDS: MEGACE LIQUID PO SCH (08:13)
[2016-12-24] MEDS: FERROUS SULFATE PO SCH (08:13)
[2016-12-24] MEDS: OXYCONTIN PO SCH ×2 (08:13→13:57)
[2016-12-24] MEDS: FLOMAX PO SCH (08:13)
[2016-12-24] MEDS ORDERED: MIRALAX PO SCH (09:00)
[2016-12-24] MEDS ORDERED: DALIRESP PO SCH (09:00)
[2016-12-24] MEDS ORDERED: VITAMIN D PO SCH (09:00)
[2016-12-24] MEDS ORDERED: PROSCAR PO SCH (12:15)
--- NOTE | 2016-12-24 13:03 | PROGRESS NOTE ---
DATE: 12/24/2016 SUBJECTIVE: Mr. Ramírez does feel better. His abdomen is not burning. He has a Stewart catheter in still but much more comfortable. He wanted to know if there was anything else we can try. I explained that I did want Dr. Martines to see him. We will probably leave the catheter in but we will set him up so he can probably go home today. OBJECTIVE: Vital Signs: Temperature 98.7 degrees, pulse 65, respirations 16, blood pressure 118/74. Lungs: Clear in all lung mason. Cardiovascular: Regular rhythm and rate without murmur or S3. Abdomen: Soft. Skin: Warm and dry. Stewart catheter in place. Urine 2300 mL. LABORATORY DATA: Reviewed from yesterday. Hematocrit stable at 36. Chemistries unremarkable. Creatinine 0.8. ASSESSMENT AND PLAN: 1. Benign prostatic hypertrophy. Trouble with voiding, frequent urination. Leave the Stewart catheter in and I will treat him with some Levaquin for potential prostatitis. I did go up on his Flomax and will consider adding Proscar to his regimen. 2. Nutritional status is improved and he has been eating, gaining weight. 3. Chronic opioid use in the past. Aware. I do not want to change that at this point. 4. Thoracic sclerosis with discomfort with significant scoliosis. 5. Depression and anxiety. He does have a history of ischemic heart disease. We will add Proscar to see if [facility] can get [facility] cc: Derick Bonilla MD
--- NOTE | 2016-12-24 14:33 | DISCHARGE SUMMARY ---
ADMISSION DATE: 12/23/2016 DISCHARGE DATE: 12/24/2016 HISTORY AND HOSPITAL COURSE: This is a 56-year-old, well known to our service. He presented to the emergency room with multiple complaints but the main one was that he was having trouble with frequent urination and did not feel like he could empty his bladder, so he requested a Stewart catheterization. He has seen Dr. Gurvinder Martines in the past in the hospital. A Stewart catheter was placed. He complained of abdominal burning. He had labs drawn and had a spurious lab value of sodium of 100. When they rechecked it to calibrate the machine it was 136. So he did not have true hyponatremia. We did send urine for culture. He had no sign of infection. PAST MEDICAL HISTORY: 1. Chronic obstructive pulmonary disease, advanced age. He is he is on home O2. 2. Chronic pain medications. He is to be followed in clinic by Dr. Gonzales. Recently has been managed by his primary care. 3. Ischemic heart disease. 4. Hypertension. 5. Thoracic sclerosis with gibbus. 6. Chronic insomnia. 7. Anxiety. The patient felt better with the Stewart catheter. He also complains of constipation so we gave him some Mag-Ox and he seemed to get good results and was requesting to go home. I did ask Dr. Gurvinder Martines to look at him. I did go up on his Flomax to 0.4 twice a day and I added Proscar. See if we can get him something to help the constipation. I did cut down his pain medicine as he is taking oxycodone 4 times a day. I cut this down from 20 to 10 mg 4 times a day. DISCHARGE MEDICATION: Simethicone two 80 mg as needed, Zanaflex 4 mg b.i.d., Flomax is up to 0.4 mg b.i.d., roflumilast 500 mcg daily, MiraLAX 17 g daily, oxycodone ER we cut down to 10 mg 4 times a day. Normal saline we gave him at 85 mL an hour. Nicotine patch 14 mg daily, Remeron 15 mg at bedtime, Megace 400 mg b.i.d., hydroxyzine 50 mg at bedtime, Proscar 5 mg a day was added, ferrous sulfate 325 mg a day, Colace 100 mg b.i.d., Klonopin 0.5 mg t.i.d., vitamin D3 1000 mg daily, albuterol treatments as needed. cc: Derick Bonilla MD
[2016-12-24 14:38] VITALS: BP 115/80
--- NOTE | 2016-12-24 21:49 | CONSULTATION ---
DATE OF CONSULTATION: 12/24/2016 ATTENDING AND REFERRING PHYSICIAN: Dr. Bonilla. HISTORY OF PRESENT ILLNESS: This 56-year-old male was admitted with irritative voiding symptoms. He states he has had increased frequency of urination over the last several weeks. He has had no hematuria. The patient was hospitalized in late September and early October for weight loss. His CT scan at that time revealed filling defects in the bladder which was read as may be bladder tumors. His cystoscopic exam revealed mucus in the bladder but no tumors. He did have trabeculations consistent with obstructive voiding. He is on Flomax 0.4 mg b.i.d. There is no history of kidney stones. His urinalysis had no evidence of infection. PAST MEDICAL HISTORY: End-stage COPD, severe scoliosis and thoracic kyphosis, chronic pain, coronary artery disease, hypertension, depression. He was previously intubated and could not be extubated. He had a tracheostomy placed and was in a long-term facility when he was slowly weaned off the ventilator and the tracheostomy was able to be removed. PAST SURGICAL HISTORY: Tracheostomy placement and takedown. Traumatic amputation of the right index finger, right hip surgeries. SOCIAL HISTORY: He uses E cigarettes. Previous alcohol abuse but none for several years. ALLERGIES: No known drug allergies. REVIEW OF SYSTEMS: He has depression and does not like his irritative voiding. He has no history of heart disease, strokes, or seizures. PHYSICAL EXAMINATION: General: A very thin, age apparent, white male, who is cooperative. HEENT: Normal for age. Lungs: Clear. Cardiovascular: Regular rate and rhythm. Abdomen: Soft, nontender. No hepatosplenomegaly or masses. Normal bowel sounds. His right rib cage is down over the right iliac wing secondary to his spinal deformities. Genitourinary: Circumcised male. Both testes down. Right spermatocele, small hydroceles bilaterally. No inguinal hernias. Rectal: Normal sphincter tone. Prostate around 30 g, smooth and symmetric. Extremities: No clubbing, cyanosis or edema. Neurologic: No focal deficits. LABORATORY EVALUATION: Has a white count of 5.78, a hemoglobin 11.7 hematocrit 35.8, platelets are 236,000. Serum electrolytes are normal. BUN 9, creatinine 0.8. IMPRESSION: Patient with irritative voiding symptoms with indwelling Stewart catheter. RECOMMEND: Discussed with patient that irritative voiding symptoms could be due to many different things from bladder tumors, kidney stones or things that are eaten that are metabolized to acid. Discussed he should continue Flomax at 0.4 mg a day and follow up in the [facility]rology Clinic in 1 week for a voiding trial. He agrees. cc: Jas Martines MD
== END 2016-12-24 15:50 | disposition home or self-care (01) ==
LOC: ED 10:39 → INTOOBSV 15:58 → 3N 15:58
PROVIDERS: ATTEND Emergency Medicine

== ENCOUNTER 2019-01-29 06:02 | Inpatient (IN) ==
--- NOTE | 2019-01-29 07:05 | Diag Imaging Result Doc PS360 ---
EXAM: CHEST-PORTABLE 01/29/2019 HISTORY: sob TECHNIQUE: AP portable upright at 0645 COMMENT: There is cardiomegaly. The right hemidiaphragm is elevated. There is apparently a fair amount of stool present in the hepatic flexure of the colon. Compared to 03/17/2018 the appearance the chest is not significantly changed. IMPRESSION: Cardiomegaly. Constipation. Otherwise stable chest. Electronically signed by Atul Eldridge 01/29/2019 7:02 AM
[2019-01-29] MEDS ORDERED: DUONEB (A & A) INH ONE ×2 (07:11→11:50)
[2019-01-29 07:57] LABS: BASO# 0.03 X1000 (0.0-0.2); BASO% 0.6 % (0.0-0.8); EOS# 0.17 X1000 (0.0-0.7); EOS% 3.2 % (0.0-10.0); HEMATOCRIT 40.2 % (42.0-52.0); LYMPH# 1.05 X1000 (1.2-3.4); LYMPH% 19.9 % (20.5-51.1); MCH 29.5 PG (27-31); MCHC 34.8 g/dL (33-37); MCV 84.8 FL (81-99); MONO# 0.49 X1000 (0.11-0.59); MONO% 9.3 % (1.7-9.3); MPV 9.1 FL (7.4-10.4); NEUT# 3.54 X1000 (1.4-6.5); PLT 226 X1000 (130-400); RBC 4.74 XMIL (4.7-6.1); RDW 12.7 % (11.5-14.5); WBC 5.28 X1000 (4.8-10.8)
--- NOTE | 2019-01-29 08:28 | EKG Report ---
Test Performed on : 01/29/2019 06:05:49 AM Test Reason : SOB Blood Pressure : / mmHG Vent. Rate : 068 BPM Atrial Rate : 068 BPM P-R Int : 182 ms QRS Dur : 104 ms QT Int : 396 ms P-R-T Axes : 047 -21 032 degrees QTc Int : 421 ms Normal sinus rhythm. Incomplete right bundle branch block Minimal voltage criteria for LVH, may be normal variant T wave abnormality, consider anterior ischemia Abnormal ECG When compared with ECG of 25-FEB-2016 17:16, Incomplete right bundle branch block is now present T wave inversion now evident in Anterior leads Unconfirmed Result
[2019-01-29] MEDS ORDERED: ROCEPHIN 1 GM in NS 50 ML IV ONE (09:23)
[2019-01-29 09:54] LABS: ESTIMATED GFR > 60
[2019-01-29 10:14] LABS: AGAP 12; BUN 5 mg/dL (8-22); CHLORIDE 87 mmol/L (98-107); COSMO 251; CREATININE 0.6 mg/dL (0.7-1.2); GLUCOSE 103 mg/dL (70-104); POTASSIUM 4.3 mmol/L (3.5-5.1); SODIUM 126 mmol/L (136-145); TCO2 27 mmol/L (25-35)
[2019-01-29 10:15] LABS: ALBUMIN 4.5 g/dL (3.5-5.0); ALKALINE PHOSPHATASE 70 U/L (32-122); CALCIUM 8.7 mg/dL (8.8-10.2); CK PROFILE 162 U/L (24-204); GOT 25 U/L (10-34); GPT 15 U/L (10-44); TOTAL BILIRUBIN 0.38 mg/dL (0.20-1.00); TOTAL PROTEIN 6.8 g/dL (6.3-8.3)
[2019-01-29 11:51] LABS: ALLEN TEST YES; BE 6.3 mmoll (-3.0-3.0); BLOOD TYPE ARTERIAL; HCO3-(ACT) 29.8 mmoll (20.0-26.0); METHB 0.9 % (0.0-1.5); O2(CT) 17.1 mL/dL (15.0-23.0); O2HB 96.2 % (95.0-99.0); PO2(98.6) 92 mmHg (60-100); SAMPLE BLOOD; SAO2 98.9 % (95.0-100.0); THB 12.6 g/dL (11.5-17.4); pH(98.6) 7.39 (7.35-7.45)
[2019-01-29 11:52] LABS: MODALITY CANNULA; PCO2(98.6) 54 mmHg (35-45)
[2019-01-29] MEDS ORDERED: SOLU-MEDROL IV ONE (13:46)
--- NOTE | 2019-01-29 13:46 | PROVIDER DOCUMENTATION ---
This chart was entered by Ivette Herring Scribe, acting as scribe for Rios Bailey MD. HPI-Respiratory General - General Chief Complaint: Shortness of Breath Stated Complaint: SOB Time Seen by Provider: 01/29/19 09:17 Source: patient Allergies/Adverse Reactions: Patient Allergies Allergy/AdvReac Type Severity Reaction Status Date / Time No Known Allergies Allergy Verified 02/25/18 14:54 Home Medications: Home Medication List Medication Instructions Recorded Confirmed Last Taken Type Fluconazole [Diflucan] 150 mg PO DIRECTED 10/16/16 01/29/19 01/26/19 History 150mg Oxycodone E.r. [Oxycontin] 20 mg PO 5XDAY 10/16/16 01/29/19 01/28/19 History 20mg Finasteride [Proscar] 5 mg PO DAILY #30 tablet 12/24/16 01/29/19 01/28/19 Rx 5mg Clonazepam [Klonopin] 0.5 mg PO TID 02/17/18 01/29/19 01/29/19 History 0.5mg Dronabinol [Marinol] 10 mg PO BID 02/17/18 01/29/19 01/28/19 History 10mg Escitalopram [Lexapro] 20 mg PO DAILY 02/17/18 01/29/19 01/28/19 History 20mg Lisinopril 5 mg PO DAILY #30 tablet 02/17/18 01/29/19 01/28/19 Rx 5mg Polyethylene Glycol 3350 [Miralax] 17 gm PO DAILY PRN 02/17/18 01/29/19 01/28/19 History 17gm Quetiapine Fumarate 25 mg PO QHS 02/17/18 01/29/19 01/28/19 History 25mg - History of Present Illness-Resp Nature of Presenting Problem: 58 yom presents to the ed with c/o worsening sob for 4 days. pt has productive cough and on exam can hear rales in rt bases. pt has BLE edema with redness and blistering seen and having frequent leg cramps at night. RLE is worse then LLE. pt does have hx of COPD Quality of Pain: reports: none Severity in ED: reports: mild Onset/Duration: reports: 4 days ago Exposure: reports: unknown cause Cough Quality/Degree: reports: mild, productive cough Episode Frequency: chronic episodes Current Respiratory Medication Therapy: Initiated see nurses note Modifying Factors: worse with: exertion, lying down Associated Symptoms: reports: shortness of breath. denies: chest pain/soreness, dizziness, fever/chills, headache, hurts to breathe, wheezing Similar Symptoms Previously?: Yes (copd) Recently seen or treated by another doctor?: No Review of Systems - Adult - REVIEW OF SYSTEMS - ADULT Constitutional: denies: chills, fever Eyes: reports: no symptoms reported Ears, Nose, Mouth & Throat: reports: no symptoms reported Cardiovascular: reports: see HPI, edema (ble). denies: chest pain, palpi tations, syncope Respiratory: reports: see HPI, cough, dyspnea on exertion, excessive sputum production, shortness of breath. denies: wheezing Gastrointestinal: denies: abdominal pain, diarrhea, nausea, vomiting Genitourinary: reports: no symptoms reported Musculoskeletal: reports: see HPI, frequent leg cramps, muscle aches. denies: back pain, neck pain Integumentary: reports: no symptoms reported Neurological: denies: dizziness/vertigo, headache/migraines Psychiatric: reports: no symptoms reported Endocrine: reports: no symptoms reported Hematologic/Lymphatic: reports: no symptoms reported Allergic/Immunologic: reports: no symptoms reported All Other Systems: Reviewed and Negative Past History - Adult - PAST MEDICAL HISTORY-ADULT Review of Records: reports: Old Records Reviewed, Nursing Assessment Review, M edications Reviewed, Social history reviewed & non-contributory. Major Childhood Illnesses: reports: denies history Cardiovascular: reports: CHF, HTN Respiratory: reports: COPD Gastrointestinal: reports: denies history Genitourinary: reports: denies history Musculoskeletal: reports: other (SCOLIOSIS) Hand Dominance: Left Handed Neurological: reports: Seizures/Epilepsy Psychiatric: reports: anxiety, depression Endocrine/Immune: reports: denies history Other Conditions: reports: MRSA - PRIOR SURGERIES/PROCEDURES Surgical/Procedure History: reports: other (right index finger amputation) - IMMUNIZATION STATUS Childhood Immunizations: See Nurse Assessment Flu Vaccine: See Nurse Assessment - FAMILY HISTORY Family History: reviewed, not pertinent - SOCIAL HISTORY Smoking: quit greater than 1 year Substance Use: denies Alcohol Use Frequency: never Living Situation: family Physical Exam-General - PHYSICAL EXAM-ADULT Initial Vital Signs Reviewed: Yes - CONSTITUTIONAL General Appearance: appears well, alert, mild distress - EYES Eyes: PERRL/EOMI, pink conjunctivae - HEAD, EARS, NOSE, MOUTH & THROAT HENMT: moist mucous membranes, normal ENT inspection - NECK Neck: non-tender, full range of motion, normal inspection - RESPIRATORY Respiratory: chest non-tender, rales (right base) - CARDIOVASCULAR Cardiovascular: normal peripheral pulses, regular rate, rhythm - CHEST (BREASTS) Chest/Breast: no tenderness - GASTROINTESTINAL (ABDOMEN) Abdominal Exam: normal bowel sounds, non tender, soft - GENITOURINARY Male Genitalia: deferred Rectal Exam: deferred Hemoccult Exam: deferred - LYMPHATIC Lymphatic: no adenopathy - MUSCULOSKELETAL Back Exam: normal inspection Extremity: normal range of motion, normal capillary refill, pelvis stable, erythema (BLE), pedal edema (bilateral improving during the day and worse at night), swelling (BLE edema with blistering seen pre tibia), tenderness (BLE) - SKIN Integumentary: normal turgor, warm/dry, erythema (BLE), tenderness (BLE) - NEUROLOGIC Neurologic: grossly normal, no motor/sensory deficits - PSYCHIATRIC Psych/Mental Status: normal mood/affect, normal thought content, normal thought process, oriented x 3 Progress - PLAN OF CARE/RESULTS Progress/Plan/Lab Results: Vital Signs - 8 hr 01/29/19 08:35 Pulse Rate 84 Respiratory Rate 18 Laboratory Results - last 24 hr 01/29/19 01/29/19 01/29/19 07:40 09:25 09:25 WBC 5.28 RBC 4.74 Hgb 14.0 Hct 40.2 L MCV 84.8 MCH 29.5 MCHC 34.8 RDW Std Deviation 12.7 Plt Count 226 MPV 9.1 Immature Gran % (Auto) 0.0 Neut % (Auto) 67.0 Lymph % (Auto) 19.9 L Ross % (Auto) 9.3 Eos % (Auto) 3.2 Baso % (Auto) 0.6 Immature Gran # (Auto) 0.00 Neut # (Auto) 3.54 Lymph # (Auto) 1.05 L Ross # (Auto) 0.49 Eos # (Auto) 0.17 Baso # (Auto) 0.03 Specimen Type Sample Site pH pCO2 pO2 HCO3 Base Excess Oxyhemoglobin ABG O2 Sat (Calculated) ABG O2 Saturation ABG Carboxyhemoglobin ABG Methemoglobin Derick Test A-a O2 Difference Total Hemoglobin Lactate Blood Gas Modality FiO2 % Sodium 126 L Potassium 4.3 Chloride 87 L Carbon Dioxide 27 Anion Gap 12 BUN 5 L Creatinine 0.6 L Estimated GFR/1.73 m2 > 60 BUN/Creatinine Ratio 8 Glucose 103 Calculated Osmolality 251 Calcium 8.7 L Magnesium Total Bilirubin 0.38 AST 25 ALT 15 Alkaline Phosphatase 70 Creatine Kinase 162 Troponin T Mpc-Q-Otohplkeweo Pept 385 H Total Protein 6.8 Albumin 4.5 Globulin 2.3 Albumin/Globulin Ratio 2.0 Plasma Lactate 01/29/19 01/29/19 01/29/19 09:25 09:25 10:55 WBC RBC Hgb Hct MCV MCH MCHC RDW Std Deviation Plt Count MPV Immature Gran % (Auto) Neut % (Auto) Lymph % (Auto) Ross % (Auto) Eos % (Auto) Baso % (Auto) Immature Gran # (Auto) Neut # (Auto) Lymph # (Auto) Ross # (Auto) Eos # (Auto) Baso # (Auto) Specimen Type Sample Site pH pCO2 pO2 HCO3 Base Excess Oxyhemoglobin ABG O2 Sat (Calculated) ABG O2 Saturation ABG Carboxyhemoglobin ABG Methemoglobin Derick Test A-a O2 Difference Total Hemoglobin Lactate Blood Gas Modality FiO2 % Sodium Potassium Chloride Carbon Dioxide Anion Gap BUN Creatinine Estimated GFR/1.73 m2 BUN/Creatinine Ratio Glucose Calculated Osmolality Calcium Magnesium 1.9 Total Bilirubin AST ALT Alkaline Phosphatase Creatine Kinase Troponin T < 0.010 [id number] Pept Total Protein Albumin Globulin Albumin/Globulin Ratio Plasma Lactate 0.8 01/29/19 01/29/19 10:55 11:45 WBC RBC Hgb Hct MCV MCH MCHC RDW Std Deviation Plt Count MPV Immature Gran % (Auto) Neut % (Auto) Lymph % (Auto) Ross % (Auto) Eos % (Auto) Baso % (Auto) Immature Gran # (Auto) Neut # (Auto) Lymph # (Auto) Ross # (Auto) Eos # (Auto) Baso # (Auto) Specimen Type ARTERIAL Sample Site R RADIAL pH 7.39 pCO2 54 H* pO2 92 HCO3 29.8 H Base Excess 6.3 H Oxyhemoglobin 96.2 ABG O2 Sat (Calculated) 17.1 ABG O2 Saturation 98.9 ABG Carboxyhemoglobin 1.80 ABG Methemoglobin 0.9 Derick Test YES A-a O2 Difference 40.0 Total Hemoglobin 12.6 Lactate 0.60 Blood Gas Modality CANNULA FiO2 % 28.0 Sodium Potassium Chloride Carbon Dioxide Anion Gap BUN Creatinine Estimated GFR/1.73 m2 BUN/Creatinine Ratio Glucose Calculated Osmolality Calcium Magnesium Total Bilirubin AST ALT Alkaline Phosphatase Creatine Kinase Troponin T Vuf-M-Fnvogwhogfa Pept 351 H Total Protein Albumin Globulin Albumin/Globulin Ratio Plasma Lactate Orders Category Date Time Status Cardiac Monitoring DIRECTED Care 01/29/19 06:39 Active Saline Loc NOW Care 01/29/19 09:18 Active CHEST-PORTABLE [RAD] Stat Exams 01/29/19 06:37 Completed ABG [RESP] Routine Lab 01/29/19 11:45 Completed BLOOD CULTURE [BLDCUL] Stat Lab 01/29/19 09:20 Ordered BNP [PRO B-NATRIURETIC PEPTIDE] Stat Lab 01/29/19 09:25 Completed CBC WITH ELECTRONIC DIFF [HEME] Stat Lab 01/29/19 07:40 Completed CK PROFILE [SP CHEM] Routine Lab 01/29/19 09:25 Completed COMPREHENSIVE METABOLIC PANEL [CHEM] Routine Lab 01/29/19 09:25 Completed LACTATE, PLASMA [CHEM] Stat Lab 01/29/19 10:55 Completed MAGNESIUM [CHEM] Stat Lab 01/29/19 09:25 Completed PRO B-NATRIURETIC PEPTIDE Stat Lab 01/29/19 10:55 Completed TROPONIN T Stat Lab 01/29/19 09:25 Completed Albuterol 2.5MG/Ipratrop 0.5MG [Duoneb (A & A)] Med 01/29/19 07:11 Discontinued 3 ml INH NOW ONE Albuterol 2.5MG/Ipratrop 0.5MG [Duoneb (A & A)] Med 01/29/19 11:50 Discontinued 3 ml INH NOW ONE CefTRIAXONE [Rocephin] 1 gm Med 01/29/19 09:23 Discontinued 0.9% Sodium Chloride Inj [Ns] 50 ml IV NOW Aerosol Treatments Routine Oth 01/29/19 07:12 Completed Aerosol Treatments Routine Oth 01/29/19 11:50 Completed Aerosol Treatments Stat Oth 01/29/19 07:12 Completed Aerosol Treatments Stat Oth 01/29/19 11:50 Completed EKG [EKG] Stat Ther 01/29/19 06:16 Draft Result Diagrams: 01/29/19 07:40 01/29/19 09:25 - REASSESSMENT Reassessment #1 Time Reassessed: 10:20 Status: improving - XRAY 1 XRAY: Bilateral XRAY Study: Chest Impression: See EMR Report (EXAM: CHEST-PORTABLE 01/29/2019 HISTORY: sob TECHNIQUE: AP portable upright at 0645 COMMENT: There is cardiomegaly. The right hemidiaphragm is elevated. There is apparently a fair amount of stool present in the hepatic flexure of the colon. Compared to 03/17/2018 the appearance the chest is not significantly changed. IMPRESSION: Cardiomegaly. Constipation. Otherwise stable chest. Electronically signed by Atul Eldridge 01/29/2019 7:02 AM 01/29/19 0702 Interpreting Physician: Atul Eldridge MD Dictated Date/Time: 01/29/19 0701 cc: Magdiel Mcarthur MD; Osmel Briscoe MD) - CONSULTS/PCP/HOSPITALIST Notification #1 *Consult/PCP/Hospitalist*: dr briscoe pcp Time Discussed: 13:37 Consult Disposition: Admit Departure - Departure Date of Disposition Decision: 01/29/19 Time of Disposition Decision: 13:37 DIAGNOSIS: SOB (shortness of breath), Cellulitis of right leg, COPD exacerbation Disposition: ADMITTED INPATIENT 09 Certified Medical Emergency: Emergent Condition: Stable Referrals and Follow-Ups: Osmel Briscoe MD [Primary Care Provider] - - Critical Care Note This patient required my direct & personal management of CC.: No Attestation - Physician/ DANGELO Attestation Patient care was provided by Advanced Practice Provider:: No The physician spent face to face time with patient:: Yes Advanced Practice Provider documentation review:: Supervising physician onsite a nd consulted in the evaluation and care of this patient. The physician did have a face to face encounter with the patient. This chart was documented by the indicated scribe, (Ivette Herring Scribe) and accurately reflects the services I performed and decisions made by me, Rios Bailey MD, as attested by the provider's signature.
[2019-01-29] MEDS ORDERED: NS 1,000 ML IV ONE (16:20)
[2019-01-29] MEDS ORDERED: TYLENOL PO PRN (16:20)
[2019-01-29] MEDS ORDERED: ZOFRAN PO PRN (16:20)
[2019-01-29] MEDS ORDERED: ZITHROMAX PO ONE (16:20)
[2019-01-29] MEDS: DUONEB (A & A) INH SCH ×3 (16:50→23:18)
[2019-01-29] MEDS: TORADOL IV PRN (17:55)
[2019-01-29] MEDS ORDERED: MIRALAX PO PRN (20:02)
[2019-01-29] MEDS ORDERED: SODIUM CHLORIDE 0.9% INJ SCH (20:15)
[2019-01-29] MEDS: ZOSYN 3.375 GM in NS 50 ML IV SCH (21:42)
[2019-01-29] MEDS: SOLU-MEDROL IV SCH (21:44)
[2019-01-29] MEDS: PROTONIX IV SCH (21:44)
--- NOTE | 2019-01-29 22:38 | HISTORY AND PHYSICAL ---
CHIEF COMPLAINT: Shortness of breath, cough, and wheezing. 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 Came in with above symptoms. He is markedly wheezing, seen in the emergency room. It has been reported he has elevation of the right hemidiaphragm, questionable infiltrate, constipation. Admitted to the hospital for acute COPD exacerbation. Patient is not in moderate distress. He was seen in my office on 01/15/2019. PAST MEDICAL HISTORY: Episodic alcohol abuse, BPH, gallstones, COPD, acid reflux disease, hypertension, kyphoscoliosis, peripheral vascular disease, history of pancreatitis. PAST SURGICAL HISTORY: Amputation of right index finger, status post tracheostomy, status post left hip fracture in 2013. MEDICINES: BuSpar 10 mg p.o. b.i.d., duloxetine 30 mg daily, Lasix 20 mg daily, lisinopril 5 mg daily, MiraLAX once daily, Flomax 0.4 mg daily. ALLERGIES: Not known. SOCIAL HISTORY: . No children. Disabled. No smoking. No drinking alcohol. Lives in [place] with his . FAMILY HISTORY: Father of stroke at 58. Mother is 74, still in good health. HEALTH MAINTENANCE: Flu vaccine March 2018. Pneumococcal April 2017. Prevnar-13 in March 2018. Digital rectal exam November 2017. REVIEW OF SYSTEMS: HEENT: No headache. No vision problems. No earache. No sore throat. Neck: No neck pain. Cardiopulmonary: Cough, shortness of breath, wheezing. Gastrointestinal: Constipation. Genitourinary: No dysuria, hesitancy, frequency. Extremities: Swelling of legs, the right is worse than the left side with redness. Neurological: No neurological symptoms or weakness. PHYSICAL EXAMINATION: VITAL SIGNS: Temperature is 97.4 degrees, pulse 67, saturation on 3 L nasal cannula 99%. HEENT: Atraumatic, normocephalic. Pupils equal, react to light. TMs are normal. Nose and throat within normal limits. NECK: Supple. No lymphadenopathy. No goiter. CHEST: Bilateral air entry wheezing. HEART: Sounds are distant. ABDOMEN: Belly is soft, nontender. Good bowel sounds. EXTREMITIES: Stress peripheral edema. NEUROLOGIC: No obvious neurological deficits. INVESTIGATIONS: White cell count 5.2, hematocrit 40, platelets 226,000. ABG pH is 7.39, pCO2 of 54, PO2 of 92 on 28%. Sodium 126, potassium 4.3, BUN 5, creatinine 0.6. Magnesium 1.9. ProBNP is normal. Cardiac enzymes are normal. Chest x-ray, COPD changes, elevation of right hemidiaphragm, constipation. ASSESSMENT AND PLAN: 1. A 58-year-old white gentleman admitted to the hospital with acute chronic obstructive pulmonary disease exacerbation. Plan is IV Levaquin, IV steroids, bronchodilators. 2. Hyponatremia. Replace the potassium, IV fluids. 3. Constipation. Continue on MiraLAX. 4. Reconcile home medications. Repeat the labs in the morning. cc: Chavez Santoyo MD MTDD
[2019-01-29] MEDS: LEVAQUIN 500 MG/D5W 500 MG/100 ML IVPB IV SCH (23:32)
[2019-01-30] MEDS: ZOSYN 3.375 GM in NS 50 ML IV SCH ×4 (03:16→19:51)
[2019-01-30] MEDS: TORADOL IV PRN ×3 (03:17→19:51)
[2019-01-30] MEDS: DUONEB (A & A) INH SCH ×6 (03:25→23:16)
[2019-01-30] MEDS: SOLU-MEDROL IV SCH ×3 (06:25→19:50)
--- NOTE | 2019-01-30 07:36 | Diag Imaging Result Doc PS360 ---
EXAM: CHEST-2 VIEWS 01/30/2019 HISTORY: hypoxia TECHNIQUE: PA and lateral chest COMMENT: There is a fairly large amount of gas and some stool present in the hepatic flexure of the colon which is directly under the hemidiaphragm on the right. The right hemidiaphragm is somewhat elevated as it was on the previous study. There is some minimal basilar atelectasis bilaterally. Considering differences in technique and inspiration there has been no appreciable change since 01/29/2019. IMPRESSION: Bibasilar atelectasis. Constipation. Electronically signed by Atul Eldridge 01/30/2019 7:33 AM
[2019-01-30] MEDS: NON-FORMULARY BULK MED INH SCH (08:01)
[2019-01-30 08:40] LABS: HEMATOCRIT 38.7 % (42.0-52.0); HEMOGLOBIN 13.2 g/dL (14.0-18.0); LYMPH# 0.66 X1000 (1.2-3.4); LYMPH% 12.9 % (20.5-51.1); MCH 29.4 PG (27-31); MCHC 34.1 g/dL (33-37); MCV 86.2 FL (81-99); MONO# 0.11 X1000 (0.11-0.59); MONO% 2.1 % (1.7-9.3); MPV 9.7 FL (7.4-10.4); NEUT# 4.36 X1000 (1.4-6.5); PLT 304 X1000 (130-400); RBC 4.49 XMIL (4.7-6.1); RDW 12.6 % (11.5-14.5); WBC 5.13 X1000 (4.8-10.8)
[2019-01-30 08:54] LABS: ESTIMATED GFR > 60
[2019-01-30 08:55] LABS: AGAP 15; BUN 7 mg/dL (8-22); CALCIUM 8.3 mg/dL (8.8-10.2); CHLORIDE 89 mmol/L (98-107); COSMO 262; CREATININE 0.7 mg/dL (0.7-1.2); GLUCOSE 154 mg/dL (70-104); POTASSIUM 3.8 mmol/L (3.5-5.1); SODIUM 130 mmol/L (136-145); TCO2 26 mmol/L (25-35)
[2019-01-30] MEDS: KLONOPIN PO SCH ×4 (10:13→20:29)
[2019-01-30] MEDS: SEROQUEL PO SCH (10:14)
[2019-01-30] MEDS: PRINIVIL PO SCH (10:14)
[2019-01-30] MEDS: LEXAPRO PO SCH (10:15)
[2019-01-30] MEDS: PROSCAR PO SCH (10:15)
[2019-01-30] MEDS: PROTONIX IV SCH (19:51)
[2019-01-30] MEDS: LOVENOX SUBQ SCH (20:29)
--- NOTE | 2019-01-30 22:38 | PROGRESS NOTE ---
DATE: 01/30/2019 SUBJECTIVE: The patient is a little better. Continues dwindling of his activities with underlying medical problems. Family wants to go to rehab. PHYSICAL EXAMINATION: Vital signs: Temperature is 97 degrees, pulse 63, blood pressure 134/73, O2 saturation on 3 L nasal cannula at 99%. HEENT: Frail gentleman with oxygen. Chest: Bilateral air entry. Heart: Sounds are distant. He has a scoliosis with a gibbus. Abdomen: Belly is soft, nontender. Extremities: There is 1+ edema. Neurological: No obvious neurological deficits. INVESTIGATIONS: CBC: White cell count 5.1, hematocrit 38.7, platelets 304,000. Sodium 130, potassium 3.8, BUN 7, creatinine 0.7. Glucose 154. ProBNP is normal. Followup chest x-ray slightly improving. ASSESSMENT AND PLAN: 1. Acute chronic obstructive pulmonary disease exacerbation. Currently on oxygen, Levaquin, IV steroids, bronchodilators. 2. Hyponatremia. Continue IV fluids. 3. Deep vein thrombosis and gastrointestinal prophylaxis with IV Protonix and Lovenox. 4. Depression, on Lexapro and Seroquel. 5. Constipation with chronic pain. Continue on MiraLAX. 6. Chronic anxiety, on Klonopin. 7. Disposition: Rehab placement on Saturday. The patient has a bed in [place]. We will check the sodium levels in the morning. LEVEL OF DOCUMENTATION: 25 minutes. cc: Chavez Santoyo MD
[2019-01-30] MEDS: LEVAQUIN 500 MG/D5W 500 MG/100 ML IVPB IV SCH (23:02)
[2019-01-31] MEDS: TORADOL IV PRN ×5 (03:05→22:25)
[2019-01-31] MEDS: SOLU-MEDROL IV SCH ×3 (03:05→20:17)
[2019-01-31] MEDS: ZOSYN 3.375 GM in NS 50 ML IV SCH ×4 (03:06→20:17)
[2019-01-31] MEDS: DUONEB (A & A) INH SCH ×6 (04:36→23:49)
[2019-01-31 08:18] LABS: AGAP 11; BUN 10 mg/dL (8-22); CALCIUM 8.3 mg/dL (8.8-10.2); CHLORIDE 93 mmol/L (98-107); COSMO 265; CREATININE 0.8 mg/dL (0.7-1.2); ESTIMATED GFR > 60; GLUCOSE 163 mg/dL (70-104); POTASSIUM 4.5 mmol/L (3.5-5.1); SODIUM 131 mmol/L (136-145); TCO2 27 mmol/L (25-35)
[2019-01-31] MEDS: PROSCAR PO SCH (08:22)
[2019-01-31] MEDS: SEROQUEL PO SCH (08:23)
[2019-01-31] MEDS: PRINIVIL PO SCH (08:23)
[2019-01-31] MEDS: LEXAPRO PO SCH (08:23)
[2019-01-31] MEDS: KLONOPIN PO SCH ×3 (08:23→20:17)
--- NOTE | 2019-01-31 10:39 | PROGRESS NOTE ---
DATE: 01/31/2019 SUBJECTIVE: Patient breathing better. Feels better. He still has not had a bowel movement despite taking MiraLAX yesterday. OBJECTIVE: Vital Signs: Afebrile, pulse 73, respirations 15, blood pressure 156/94, O2 saturation on 3 L 100%. Cardiovascular: RRR. Lungs: Fairly clear. Abdomen: Mild protuberance. Active bowel sounds. Nontender. Extremities: Some chronic venous stasis skin thickening over the shins noted, but no active infection. No cords or edema. Neurologic: Nonfocal. Moves all extremities well. ASSESSMENT: 1. Chronic obstructive pulmonary disease exacerbation. 2. Hyponatremia. 3. Constipation. 4. Depression with anxiety. 5. Chronic pain syndrome. PLAN: Continue antibiotics of Levaquin and Zosyn. Continue IV steroids and nebulizer treatments. Will schedule his MiraLAX and make it b.i.d., and monitor for bowel movements. Sodium has improved and will continue the IV normal saline. cc: MD Chavez Robles MD
[2019-01-31] MEDS: MIRALAX PO SCH ×2 (11:04→20:17)
[2019-01-31] MEDS: LOVENOX SUBQ SCH (20:17)
[2019-01-31] MEDS: PROTONIX IV SCH (21:17)
[2019-01-31] MEDS: LEVAQUIN 500 MG/D5W 500 MG/100 ML IVPB IV SCH (22:25)
[2019-02-01] MEDS: SOLU-MEDROL IV SCH ×4 (02:55→20:14)
[2019-02-01] MEDS: ZOSYN 3.375 GM in NS 50 ML IV SCH ×4 (02:55→20:15)
[2019-02-01] MEDS: TORADOL IV PRN ×5 (02:55→22:48)
[2019-02-01] MEDS: DUONEB (A & A) INH SCH ×6 (03:53→23:20)
[2019-02-01] MEDS: NON-FORMULARY BULK MED INH SCH (07:55)
[2019-02-01] MEDS: PROSCAR PO SCH (08:59)
[2019-02-01] MEDS: MIRALAX PO SCH ×2 (08:59→20:14)
[2019-02-01] MEDS: LEXAPRO PO SCH (08:59)
[2019-02-01] MEDS: SEROQUEL PO SCH (09:00)
[2019-02-01] MEDS: PRINIVIL PO SCH (09:00)
[2019-02-01] MEDS: KLONOPIN PO SCH ×3 (09:00→20:14)
--- NOTE | 2019-02-01 10:57 | PROGRESS NOTE ---
DATE: 02/01/2019 SUBJECTIVE: The patient complains of some pain. He does not really relate where the pain is per se, but he says he had been on some narcotics in the past and inquires about that. Dr. Santoyo had him on Toradol. He really cannot elicit where the pain is at at this time. Had accidentally pulled out his IV site yesterday, but fortunately that has been replaced in his right forearm area currently. OBJECTIVE: Vital signs: Afebrile, pulse 66, respirations 18, blood pressure 145/85, O2 saturation on 3 L is 100%. Cardiovascular: RRR. Lungs: Minimally coarse breath sounds bilaterally. Abdomen: Soft, nontender, nondistended. Extremities: No calf tenderness or cords. Maybe trace edema. LABORATORY DATA: Lab data from yesterday reviewed. ASSESSMENT: 1. Chronic obstructive pulmonary disease exacerbation with bronchitis and atelectasis. 2. Hyponatremia. 3. Constipation. 4. Depression with anxiety. 5. Chronic pain syndrome. PLAN: Continue Levaquin and Zosyn, IV steroids, nebulizer treatments, O2, b.i.d. MiraLAX, oral liquid intake. For now, we will leave him on Toradol. He can discuss upping his pain medications with Dr. Don, his regular physician, tomorrow if he needs to. cc: MD Chavez Robles MD
[2019-02-01] MEDS: PROTONIX IV SCH (20:14)
[2019-02-01] MEDS: LOVENOX SUBQ SCH (20:14)
[2019-02-01] MEDS: LEVAQUIN 500 MG/D5W 500 MG/100 ML IVPB IV SCH (22:48)
[2019-02-02] MEDS: TORADOL IV PRN (02:09)
[2019-02-02] MEDS: DUONEB (A & A) INH SCH ×6 (02:34→22:55)
[2019-02-02] MEDS: ZOSYN 3.375 GM in NS 50 ML IV SCH ×4 (02:41→20:44)
[2019-02-02] MEDS ORDERED: CARDIZEM IV ONE (02:44)
[2019-02-02 03:42] LABS: HEMATOCRIT 39.8 % (42.0-52.0); IMM GRAN# 0.02 X1000 (0.0-0.04); IMM GRAN% 0.2 % (0.0-0.5); LYMPH# 0.71 X1000 (1.2-3.4); MCH 29.2 PG (27-31); MCHC 32.7 g/dL (33-37); MCV 89.4 FL (81-99); MONO# 0.18 X1000 (0.11-0.59); MPV 9.2 FL (7.4-10.4); NEUT# 7.92 X1000 (1.4-6.5); NEUT% 89.8 % (42.2-75.2); PLT 377 X1000 (130-400); RBC 4.45 XMIL (4.7-6.1); RDW 13.4 % (11.5-14.5); WBC 8.83 X1000 (4.8-10.8)
[2019-02-02 03:47] LABS: AGAP 14; BUN 18 mg/dL (8-22); CALCIUM 8.5 mg/dL (8.8-10.2); CHLORIDE 95 mmol/L (98-107); CK PROFILE 67 U/L (24-204); COSMO 276; CREATININE 0.9 mg/dL (0.7-1.2); ESTIMATED GFR > 60; GLUCOSE 169 mg/dL (70-104); POTASSIUM 5.1 mmol/L (3.5-5.1); SODIUM 135 mmol/L (136-145); TCO2 26 mmol/L (25-35)
[2019-02-02 04:22] LABS: FREE T4 0.75 ng/dL (0.93-1.70); TSH 1.39 uIUmL (0.27-4.20)
[2019-02-02] MEDS: CARDIZEM 125 MG/D5W 125 MG/125 ML IVPB IV SCH ×2 (04:23→14:11)
[2019-02-02] MEDS: SOLU-MEDROL IV SCH ×3 (04:25→20:44)
[2019-02-02 04:47] LABS: LYMPHS 8 % (21-51); MONO 1 % (1-9); SEGS 91 % (42-75)
--- NOTE | 2019-02-02 04:50 | EKG Report ---
Test Performed on : 02/02/2019 02:23:53 AM Test Reason : possible afib Blood Pressure : / mmHG Vent. Rate : 152 BPM Atrial Rate : 100 BPM P-R Int : 000 ms QRS Dur : 106 ms QT Int : 298 ms P-R-T Axes : 000 002 154 degrees QTc Int : 473 ms Atrial fibrillation. with rapid ventricular response. Incomplete right bundle branch block Marked ST abnormality, possible inferolateral subendocardial injury Abnormal ECG When compared with ECG of 02-FEB-2019 02:22, (Unconfirmed) Incomplete right bundle branch block has replaced Right bundle branch block Confirmed by Kimmie LANTIGUA, Chris Greenwood ([id number]) on 02/02/2019 7:12:05 AM
[2019-02-02] MEDS: SEROQUEL PO SCH (08:34)
[2019-02-02] MEDS: OXY IR PO SCH ×5 (08:34→20:45)
[2019-02-02] MEDS: LACTULOSE PO SCH ×2 (08:34→20:45)
[2019-02-02] MEDS: KLONOPIN PO SCH ×3 (08:34→17:46)
[2019-02-02] MEDS: LEXAPRO PO SCH (08:34)
[2019-02-02] MEDS: MIRALAX PO SCH ×2 (08:35→20:45)
[2019-02-02] MEDS: PRINIVIL PO SCH (08:35)
[2019-02-02] MEDS: PROSCAR PO SCH (08:35)
[2019-02-02] MEDS: LOVENOX SUBQ SCH (20:45)
[2019-02-02] MEDS: PROTONIX PO SCH (20:45)
[2019-02-02] MEDS: LEVAQUIN 500 MG/D5W 500 MG/100 ML IVPB IV SCH (22:57)
--- NOTE | 2019-02-03 01:32 | EKG Report ---
Test Performed on : 02/03/2019 00:54:44 AM Test Reason : rhythm change Blood Pressure : / mmHG Vent. Rate : 053 BPM Atrial Rate : 053 BPM P-R Int : 170 ms QRS Dur : 110 ms QT Int : 464 ms P-R-T Axes : 027 068 031 degrees QTc Int : [address] & T wave abnormality, consider lateral ischemia Abnormal ECG When compared with ECG of 02-FEB-2019 02:23, Sinus rhythm. has replaced Atrial fibrillation. Vent. rate has decreased BY 99 BPM Questionable change in QRS axis ST no longer depressed in Inferior leads ST no longer depressed in Anterolateral leads T wave inversion less evident in Anterior leads Confirmed by Kimmie LANTIGUA, Chris Greenwood ([id number]) on 02/04/2019 9:54:55 PM
[2019-02-03] MEDS: CARDIZEM 125 MG/D5W 125 MG/125 ML IVPB IV SCH (02:27)
[2019-02-03] MEDS: ZOSYN 3.375 GM in NS 50 ML IV SCH ×4 (02:27→20:50)
[2019-02-03] MEDS: DUONEB (A & A) INH SCH ×6 (04:16→23:50)
[2019-02-03] MEDS: SOLU-MEDROL IV SCH ×3 (04:32→20:50)
[2019-02-03 06:45] LABS: AGAP 13; ALB/GLOB RATIO 2.4; ALBUMIN 4.1 g/dL (3.5-5.0); ALKALINE PHOSPHATASE 45 U/L (32-122); BUN 24 mg/dL (8-22); CALCIUM 8.2 mg/dL (8.8-10.2); CHLORIDE 93 mmol/L (98-107); CK PROFILE 51 U/L (24-204); COSMO 279; CREATININE 0.9 mg/dL (0.7-1.2); ESTIMATED GFR > 60; GLUCOSE 177 mg/dL (70-104); GOT 14 U/L (10-34); GPT 12 U/L (10-44); POTASSIUM 5.1 mmol/L (3.5-5.1); SODIUM 135 mmol/L (136-145); TCO2 29 mmol/L (25-35); TOTAL BILIRUBIN 0.23 mg/dL (0.20-1.00); TOTAL PROTEIN 5.8 g/dL (6.3-8.3)
[2019-02-03 06:46] LABS: MCH 29.6 PG (27-31); MCHC 32.4 g/dL (33-37); MCV 91.1 FL (81-99); RBC 4.06 XMIL (4.7-6.1); RDW 13.8 % (11.5-14.5); WBC 7.39 X1000 (4.8-10.8)
--- NOTE | 2019-02-03 07:15 | PROGRESS NOTE ---
DATE: 02/02/2019 SUBJECTIVE: The patient is supposed to go to rehab today. Last night he went into atrial fibrillation, Dr. Saldaña transferred to stepdown unit. The patient was started on Cardizem drip, rate is well controlled. Complains of constipation. REVIEW OF SYSTEMS: No chest pain, shortness of breath. OBJECTIVE: Vital Signs: Temperature is 97 degrees, pulse is 75 now, blood pressure is stable, the patient is not in respiratory distress. HEENT: Within normal limits. Neck: Supple. No lymphadenopathy. No goiter. Chest: Bilateral air entry. Heart: Sounds are regular irregular. Abdomen: Soft, nontender. Good bowel sounds. Extremities: No peripheral edema. LABORATORY DATA: White cell count 8.8, hematocrit 39.8, platelets 377,000. Sodium 135, potassium 5.1, BUN 18, creatinine 0.9, glucose 169, calcium 8.5. Cardiac enzymes were negative. TSH is normal. EKG shows atrial fibrillation, T-wave inversion in the lateral leads. ASSESSMENT AND PLAN: 1. COPD exacerbation currently on Levaquin and IV steroids. 2. Deep vein thrombosis and gastrointestinal prophylaxis with Lovenox and Protonix. 3. New onset of atrial fibrillation. Normal cardiac enzymes and we will continue on Cardizem drip, currently asymptomatic. 4. Constipation. We will continue on MiraLAX. We will check the labs in the morning and we will follow up. LEVEL OF DOCUMENTATION: 25 minutes. cc: Chavez Santoyo MD
--- NOTE | 2019-02-03 07:27 | EKG Report ---
Test Performed on : 02/03/2019 06:56:15 AM Test Reason : CP Blood Pressure : / mmHG Vent. Rate : 060 BPM Atrial Rate : 060 BPM P-R Int : 182 ms QRS Dur : 094 ms QT Int : 416 ms P-R-T Axes : 034 -14 029 degrees QTc Int : 416 ms Normal sinus rhythm. Possible Left atrial enlargement T wave abnormality, consider anterolateral ischemia Abnormal ECG When compared with ECG of 03-FEB-2019 00:54, (Unconfirmed) Previous EKG has left arm and left leg leads reversed Confirmed by Kimmie LANTIGUA, Chris Greenwood ([id number]) on 02/04/2019 10:04:43 PM
[2019-02-03] MEDS: LACTULOSE PO SCH ×2 (09:17→21:32)
[2019-02-03] MEDS: NICODERM PATCH TD SCH (09:17)
[2019-02-03] MEDS: KLONOPIN PO SCH ×3 (09:17→18:20)
[2019-02-03] MEDS: SEROQUEL PO SCH (09:17)
[2019-02-03] MEDS: CARDIZEM PO SCH ×2 (09:17→21:32)
[2019-02-03] MEDS: LEXAPRO PO SCH (09:17)
[2019-02-03] MEDS: MIRALAX PO SCH ×2 (09:17→21:33)
[2019-02-03] MEDS: PRINIVIL PO SCH (09:17)
[2019-02-03] MEDS: PROSCAR PO SCH (09:17)
[2019-02-03] MEDS: LOTRIMIN 1% CREAM TOP SCH ×2 (09:18→21:33)
[2019-02-03] MEDS: OXY IR PO SCH ×3 (09:22→18:20)
--- NOTE | 2019-02-03 16:18 | ECHO REPORT ---
ORDER DATE: 02/02/2019 INTERPRETING PHYSICIAN: Izt West MD. CLINICAL INDICATIONS: Possible cardiac embolism. M-MODE MEASUREMENTS: Left ventricle end diastole: 4.2 cm. Left ventricle end systole: 2.5 cm. Posterior wall: 1.0 cm. Interventricular septum: 1.1 cm. Left atrium: 3.3 cm. Aortic diameter: 3.6 cm. SUMMARY OF 2-DIMENSIONAL IMAGIN. Left ventricular function appears to be normal. Ejection fraction is grossly estimated at 67%. No wall motion abnormality is noted. 2. The aortic valve is normal. It has three cusps. Color flow mapping unremarkable. 3. The mitral valve shows mild degree of regurgitation. 4. Pulsed wave Doppler of mitral inflow is normal. 5. Tissue Doppler of septal and lateral mitral annulus averages 14 cm. There is no diastolic dysfunction. 6. The tricuspid valve is unremarkable. 7. The pulmonic valve is also unremarkable. 8. There is no pericardial effusion, no mass, and no thrombus. Clinical correlation is recommended. cc: MD Chavez Prasad MD
[2019-02-03] MEDS: LOVENOX SUBQ SCH (20:50)
[2019-02-03] MEDS: PROTONIX PO SCH (21:31)
[2019-02-03] MEDS: LEVAQUIN 500 MG/D5W 500 MG/100 ML IVPB IV SCH (21:34)
--- NOTE | 2019-02-03 22:01 | PROGRESS NOTE ---
DATE: 02/03/2019 SUBJECTIVE: The patient is doing well. He is in sinus. Echocardiography was done and EF is 67%. No significant valvular heart disease. Normal thyroid function test. OBJECTIVE: Vital signs: Temperature is 98 degrees. Vitals are stable. 3 L nasal cannula 94%. Complains of constipation. Rest of the review of systems are normal. HEENT: Within normal limits. Chest: Bilateral air entry. Cardiovascular: Heart sounds regular. Abdomen: Belly is soft, nontender. ASSESSMENT AND PLAN: 1. Paroxysmal atrial fibrillation, normal TSH, normal echocardiogram, asymptomatic. Given Cardizem 60 p.o. b.i.d. 2. Deep venous thrombosis prophylaxis with Lovenox. 3. Chronic obstructive pulmonary disease is better. Continue present treatment. The patient is currently medically stable and I spoke to the social problems specialist. He has a bed for rehab. We will discharge if he is stable in the morning. Continue present treatment. LEVEL OF DOCUMENTATION: 25 minutes. cc: Chavez Santoyo MD
[2019-02-04] MEDS: OXY IR PO SCH ×3 (00:06→10:29)
[2019-02-04] MEDS: DUONEB (A & A) INH SCH ×3 (03:08→10:45)
[2019-02-04] MEDS: ZOSYN 3.375 GM in NS 50 ML IV SCH ×2 (03:14→08:17)
[2019-02-04] MEDS ORDERED: SOLU-MEDROL IV SCH (04:00)
[2019-02-04] MEDS: PROSCAR PO SCH (08:17)
[2019-02-04] MEDS: MIRALAX PO SCH (08:17)
[2019-02-04] MEDS: SEROQUEL PO SCH (08:17)
[2019-02-04] MEDS: NICODERM PATCH TD SCH (08:17)
[2019-02-04] MEDS: CARDIZEM PO SCH (08:17)
[2019-02-04] MEDS: LACTULOSE PO SCH (08:17)
[2019-02-04] MEDS: KLONOPIN PO SCH (08:17)
[2019-02-04] MEDS: PRINIVIL PO SCH (08:17)
[2019-02-04] MEDS: LEXAPRO PO SCH (08:17)
[2019-02-04] MEDS: LOTRIMIN 1% CREAM TOP SCH (08:18)
[2019-02-04 11:08] VITALS: BP 154/97
--- NOTE | 2019-02-04 11:10 | DISCHARGE SUMMARY ---
ADMISSION DATE: 01/29/2019 DISCHARGE DATE: 02/04/2019 DISCHARGING DIAGNOSIS: Acute chronic obstructive pulmonary disease exacerbation. SECONDARY DIAGNOSES: 1. Paroxysmal atrial fibrillation. 2. Benign prostatic hypertrophy. 3. Gallstones. 4. Acid reflux disease. 5. Hypertension. 6. Kyphoscoliosis of the thoracolumbar spine with a gibbus. 7. Chronic tinea infection on the right side of the chest. 8. Peripheral arterial disease. BRIEF HISTORY: Please see the H and P that was done on 01/29/2019. In brief, he is a 58-year- old, white gentleman with the above problems, with a history of COPD dependent on oxygen, requiring tracheostomy, who came in with shortness of breath, cough, wheezing. Chest x-ray showed thoracic scoliosis with a gibbus, elevation of right hemidiaphragm. He was given steroids, oxygen, bronchodilators, IV antibiotics. Hospital course was prolonged due to atrial fibrillation, due to stop or taking the chronic pain medications. He was started on Cardizem, converted to sinus. Further workup, normal thyroid function tests, normal echocardiography findings. He was also constipated with chronic pain medication, [facility], for which she was given laxatives. At the time of discharge, patient is stable. LABS: CBC: White cell count 7.3, hematocrit 37, platelets 386,000. Sodium 135, potassium 5.1, chloride 93, BUN 24, creatinine 0.9, glucose 177. Liver function tests and cardiac enzymes were negative. TSH, free T4 normal. ABG on 28%, pH is 7.39, pCO2 of 54, PO2 of 92. Blood cultures were negative. Echocardiography findings, EF 67%. No significant valvular heart disease seen. DISCHARGE INSTRUCTIONS: Flu vaccine 03/21/2018, pneumococcal 13 on 03/21/2018. Proscar 5 mg daily, Klonopin 0.5 t.i.d., Marinol 10 p.o. b.i.d., Lexapro 20 daily, lisinopril 5 mg daily, MiraLAX 17 g daily, OxyIR 20 mg 5 times daily, Seroquel 100 at bedtime, Seroquel 50 in the morning, Trelegy 1 puff in the morning, Ventolin HFA as needed, lactulose 30 mg p.o. b.i.d., Nicotrol patch 21 mg daily, Lotrisone cream on the skin once daily. Dr. Caba is going to palliate and monitoring his situation in the [facility] at [facility]. cc: Chavez Santoyo MD
[2019-02-04] MEDS ORDERED: LEVAQUIN PO SCH (22:00)
== END 2019-02-04 12:58 | DRG 191 ==
LOC: ED 06:02 → 3N 14:06 → 2N 02-02 03:48
PROVIDERS: ADMIT Internal Medicine; ATTEND Internal Medicine

== ENCOUNTER 2019-02-24 11:25 | Inpatient (IN) ==
[2019-02-24 12:51] LABS: URINE SOURCE CLEAN CATCH
[2019-02-24 12:55] LABS: BILIRUBIN URINE NEGATIVE (NEGATIVE); BLOOD URINE NEGATIVE (NEGATIVE); COLOR YELLOW; GLUCOSE URINE NEGATIVE (NEGATIVE); KETONE URINE NEGATIVE (NEGATIVE); LEUKOCYTES URINE NEGATIVE (NEGATIVE); NITRITE URINE NEGATIVE (NEGATIVE); PH URINE 7.5; PROTEIN URINE TRACE mg/dL (NEGATIVE); SP GRAVITY URINE 1.012; TURBIDITY URINE CLEAR (CLEAR); UR EPITHELIAL CELLS <10 /HPF (<10); URINE BACTERIA NEGATIVE /HPF; URINE RBC <10 /HPF (<10); URINE WBC <10 /HPF (<10); UROBILINOGEN URINE NORMAL (NORMAL)
[2019-02-24 13:42] LABS: UR AMPHETAMINES QUAL NONE DETECTED (NONE DETECT); UR BARBITUATES QUAL NONE DETECTED (NONE DETECT); UR BENZODIAZEPIN QUAL NONE DETECTED (NONE DETECT); UR CANNABINOIDS QUAL PRESUMPTIVE POSITIVE (NONE DETECT); UR COCAINE QUAL NONE DETECTED (NONE DETECT); UR METHADONE QUAL NONE DETECTED (NONE DETECT); UR OPIATES QUAL NONE DETECTED (NONE DETECT); UR OXYCODONE QUAL PRESUMPTIVE POSITIVE (NONE DETECT); UR PCP QUAL NONE DETECTED (NONE DETECT)
--- NOTE | 2019-02-24 14:25 | Diag Imaging Result Doc PS360 ---
EXAM: CT PELVIS W/O CONTRAST INDICATION: FALL TECHNIQUE: This exam was performed using automated exposure control, adjustment of mA or kV according to patient size, and/or use of iterative reconstruction technique. COMPARISON: Conventional CT of the abdomen and pelvis dated 11/12/2017 FINDINGS: The bones are diffusely osteopenic. There is extremely severe lumbar scoliosis with marked multilevel degenerative arthropathy that is stable. There is an acute fracture with minimal displacement involving the inferior pubic ramus on the left. There is a stable left medullary cirilo and helical nail associated with the left femur indicating prior fixation. No other acute fracture is identified involving the pelvis, hips, or sacrum. There is abundant stool in the colon suggesting likely constipation. No other acute intrapelvic pathology is appreciated. Surrounding soft tissues are essentially unremarkable. IMPRESSION: 1.Acute fracture of the inferior pubic ramus on the left as described. 2.Incidental findings suggesting constipation. 3.Other chronic bony findings are stable as described above. Electronically signed by Xavier Mario 02/24/2019 2:23 PM
--- NOTE | 2019-02-24 14:46 | Diag Imaging Result Doc PS360 ---
EXAM: SHOULDER-LEFT HISTORY: FALL TECHNIQUE: Shoulder three views including an axillary Y-view COMPARISON: None. FINDINGS: No fracture. No dislocation. No separation at the acromioclavicular joint. IMPRESSION: No acute bony injury. Electronically signed by Cristobal Elliott 02/24/2019 2:44 PM
--- NOTE | 2019-02-24 14:48 | Diag Imaging Result Doc PS360 ---
EXAM: FEMUR MIN 2 VIEWS LEFT HISTORY: FALL TECHNIQUE: Four views COMPARISON: None. FINDINGS: Prior surgery to the hip. No fracture. No dislocation. IMPRESSION: No acute bony injury to the femur. Electronically signed by Cristobal Elliott 02/24/2019 2:45 PM
--- NOTE | 2019-02-24 15:24 | Diag Imaging Result Doc PS360 ---
EXAM: ELBOW 2 VIEWS LEFT HISTORY: FALL TECHNIQUE: Left elbow two views. A complete series was not ordered. COMPARISON: None. FINDINGS: No fracture. No dislocation. Arthritis is present. IMPRESSION: No acute bony injury identified. Follow-up films may be beneficial. Electronically signed by Cristobal Elliott 02/24/2019 3:22 PM
[2019-02-24] MEDS ORDERED: NORCO-10 PO ONE (16:59)
--- NOTE | 2019-02-24 17:30 | PROVIDER DOCUMENTATION ---
This chart was entered by Stella Cortez Scribe, acting as scribe for Crystal Taylor MD. 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 Pt reports he uses a cane or walker but wasn't using anything when fall happened. Pt deos reports hitting head but denies LOC. Pt denies, anderson,dizziness, neck pain or chest pain. According to [facility] med list sent with pt he was recently taken off Marinol. Pt has hx of severe scoliosis and takes 20mg [place] 5xday. Pt is nontoxic and in no apparent distress upon exam. Quality of Pain: reports: throbbing Severity in ED: mild Onset/Duration: just prior to arrival Timing: improving Modifying Factors: worse with: exercise, movement, palpation Any recent injury?: Yes (fell) Locality of Occurance: Home Similar Symptoms Previously?: No Recently seen or treated by another doctor?: No - FALL INJURY Location of Pain/Injury: reports: upper extremity (left elbow), pelvis (left) Reason for Fall: reports: tripped Symptoms prior to fall:: reports: none Loss of Consciousness: no loss of consciousness Injury Associated Symptoms: reports: arm pain (left elbow), joint pain (left hip). denies: back/neck pain, dizziness, headaches - HIP/PELVIS PAIN/INJURY Hip Pain Location: reports: hip (L), pelvis Pain Radiation: reports: groin (left) Context / Method of Injury: reports: fall - LOWER EXTREMITY PAIN/INJURY Lower Extremities Pain: hip: left - UPPER EXTREMITY PAIN/INJURY Extremities Pain Location: elbow: left Context / Method of Injury: reports: fell Review of Systems - Adult - REVIEW OF SYSTEMS - ADULT Constitutional: reports: see HPI. denies: chills, fever, fatique Eyes: reports: no symptoms reported Ears, Nose, Mouth & Throat: reports: no symptoms reported Cardiovascular: reports: see HPI. denies: chest pain, palpitations Respiratory: reports: no symptoms reported Gastrointestinal: reports: see HPI, abdominal pain (suprapubic tenderness). denies: diarrhea, nausea, vomiting Genitourinary: reports: no symptoms reported Musculoskeletal: reports: see HPI, joint pain (left hip; left elbow). denies: neck pain Integumentary: reports: no symptoms reported Neurological: reports: see HPI, dizziness/vertigo. denies: slurred speech Psychiatric: reports: no symptoms reported Endocrine: reports: no symptoms reported Hematologic/Lymphatic: reports: no symptoms reported Allergic/Immunologic: reports: no symptoms reported All Other Systems: Reviewed and Negative Past History - Adult - PAST MEDICAL HISTORY-ADULT Review of Records: reports: Nursing Assessment Review, Medications Reviewed, Social history reviewed & non-contributory. Major Childhood Illnesses: reports: denies history Cardiovascular: reports: CHF, HTN Respiratory: reports: COPD Gastrointestinal: reports: denies history Obstetrical/Gynecological: reports: denies history Genitourinary: reports: denies history Musculoskeletal: reports: other (SCOLIOSIS) Neurological: reports: Seizures/Epilepsy Endocrine/Immune: reports: denies history Other Conditions: reports: MRSA - PRIOR SURGERIES/PROCEDURES Surgical/Procedure History: reports: other (right index finger amputation) - IMMUNIZATION STATUS Childhood Immunizations: See Nurse Assessment Flu Vaccine: See Nurse Assessment - FAMILY HISTORY Family History: reviewed, not pertinent - SOCIAL HISTORY Smoking: denies Physical Exam-Injury Related - Physical Exam-Injury Related Initial Vital Signs Reviewed: Yes General Appearance: appears well, alert, no apparent distress, thin. negative: anxious, combative Immobilization?: negative: backboard, C-collar Eyes: PERRL/EOMI, pink conjunctivae. negative: photophobia Head, Ears, Nose, Mouth & Throat: normocephalic/atraumatic, moist mucous membranes. negative: angioedema Neck: normal inspection. negative: C-spine tenderness Respiratory: chest non-tender, lungs clear, normal breath sounds. negative: stridor, wheezing Cardiovascular: normal peripheral pulses, regular rate, rhythm, no edema. negative: bradycardia, tachycardia Abdominal Exam: normal bowel sounds, soft, tenderness (left suprapubic area) Back Exam: scoliosis (severe) Extremity: normal capillary refill. negative: normal range of motion (left hip) Integumentary: other (cellulitis of left lower leg that is being treated by Dr. Nagy). negative: diaphoresis, jaundice Psych/Mental Status: normal mood/affect, oriented x 3. negative: anxious, disheveled - Glascow Coma Score Best Eye Response (Elise): (4) open spontaneously Best Verbal Response (Elise): (5) oriented Best Motor Response ([place]): (6) obeys commands Elise Total: 15 Progress - PLAN OF CARE/RESULTS Progress/Plan/Lab Results: Vital Signs - 8 hr 02/24/19 11:21 Temperature 98.5 F Pulse Rate 102 H Respiratory Rate 17 Blood Pressure 166/103 O2 Sat by Pulse Oximetry 96 Laboratory Results - last 24 hr 02/24/19 02/24/19 12:41 12:49 Urine Source CLEAN CATCH Urine Color YELLOW Urine Turbidity CLEAR Urine pH 7.5 Ur Specific Alexander 1.012 Urine Protein TRACE A Ur Glucose (Stick) NEGATIVE Ur Ketones (Stick) NEGATIVE Urine Blood NEGATIVE Urine Nitrite NEGATIVE Urine Bilirubin NEGATIVE Urobilinogen Dipstick NORMAL Urine Leukocytes NEGATIVE Urine WBC (Auto) <10 Urine RBC (Auto) <10 U Epithel Cells (Auto) <10 Urine Bacteria (Auto) NEGATIVE Urine Opiates Screen NONE DETECTED Ur Oxycodone Screen PRESUMPTIVE POSITIVE A Ur Methadone, Qual NONE DETECTED Ur Barbiturates Screen NONE DETECTED Ur Phencyclidine Scrn NONE DETECTED Ur Amphetamines Screen NONE DETECTED U Benzodiazepines Scrn NONE DETECTED Urine Cocaine Screen NONE DETECTED U Cannabinoids Screen PRESUMPTIVE POSITIVE A Orders Category Date Time Status CT PELVIS W/O CONTRAST [CT] Stat Exams 02/24/19 12:27 Completed ELBOW 2 VIEWS LEFT [RAD] Stat Exams 02/24/19 12:27 Completed FEMUR MIN 2 VIEWS LEFT [RAD] Stat Exams 02/24/19 12:27 Completed SHOULDER-LEFT [RAD] Stat Exams 02/24/19 12:27 Completed UA NIMS W/REFLEX CULT [URINALYSIS] Stat Lab 02/24/19 12:41 Completed URINE DRUG SCREEN Routine Lab 02/24/19 12:49 Completed Hydrocodone/APAP 10 mg/325 mg [[place]-10] Med 02/24/19 16:59 Discontinued 2 each PO NOW ONE - XRAY 1 XRAY: Left XRAY Study: Shoulder Impression: See EMR Report (IMPRESSION: No acute bony injury. Electronically signed by Cristobal Elliott 02/24/2019 2:44 PM) 2 XRAY: Left XRAY Study: Femur Impression: See EMR Report (IMPRESSION: No acute bony injury to the femur. Electronically signed by Cristobal Elliott 02/24/2019 2:45 PM) 3 XRAY: Left XRAY Study: Elbow Impression: See EMR Report (IMPRESSION: No acute bony injury identified. Follow-up films may be beneficial. Electronically signed by Cristobal Elliott 02/24/2019 3:22 PM) - CT/MRI 1 CT Study: Pelvis Impression: See EMR Report (IMPRESSION: 1.Acute fracture of the inferior pubic ramus on the left as described. 2.Incidental findings suggesting constipation. 3.Other chronic bony findings are stable as described above. Electronically signed by Xavier Mario 02/24/2019 2:23 PM) - CONSULTS/PCP/HOSPITALIST Notification #1 *Consult/PCP/Hospitalist*: Dr. Elliott paged@[phone];repaged@[phone];Jocy/CHUTE TAPPER returned page@[phone] Time Discussed: 16:30 Consult Disposition: other (will consult pt if admitted upstairs) #2 Consult: Dr. Nagy paged@[phone];returned page@[phone] Time Discussed: 16:49 Consult Disposition: other (advised to send pt back to [facility] as they can manage pain and do rehab) #3 Consult: D/W DR NAGY that pt is d/c from rehab today Time Discussed: 17:02 Consult Disposition: other (he recommended home and he will put the orders for home health. Recommended to give prescription for norco at current dose. Pt refused cook's, said can use urinal, to help with BM. Pt to f/u with Dr. Nagy and Ortho as out patient.) Departure - Departure Date of Disposition Decision: 02/24/19 Time of Disposition Decision: 16:41 DIAGNOSIS: Closed fracture of single pubic ramus of pelvis, Constipation Disposition: ADMITTED INPATIENT 09 Certified Medical Emergency: Emergent Condition: Stable Additional Instructions: ED Follow Up Instructions: WEIGHT BEARING TOLERATED. FALL PRECAUTIONS, AMBULATION ONLY WITH ASSISTANCE. FOLLOW UP WITH DR NAGY AND DR LAWSON SCHEDULED. CONTINUE PRESENT PAIN MEDICATIONS. You have been treated by a care provider in the Emergency Department. These instructions are being provided to you so you can have an understanding of how to care for yourself upon discharge. Upon discharge from the Emergency Department, you are responsible for making arrangements for follow-up care by a physician of your choice. Take all prescribed medications as directed. Return to the Emergency Department immediately for any new or worsening symptoms. You may call the Physician Referral phone number at [phone] to obtain a list of Physicians who are taking new patients. Prescriptions: Polyethylene Glycol 3350 [Miralax] 17 gm PO DAILY PRN #30 [id number] PRN Reason: Constipation Hydrocodone/APAP 10 mg/325 mg [[place]-10] 2 ea PO Q6H PRN PRN 4 Days #32 tab PRN Reason: Pain Referrals and Follow-Ups: Osmel Nagy MD [Primary Care Provider] - Call for Appoint. 1-2days Keyon Elliott MD [ACTIVE STAFF PHYSICIAN] - Call for Appoint. 1-2days Discharge Education: Constipation, Adult, [id number], Simple Pelvic Fracture, Adult - Critical Care Note This patient required my direct & personal management of CC.: No Attestation - Physician/ DANGELO Attestation Patient care was provided by Advanced Practice Provider:: No The physician spent face to face time with patient:: Yes Advanced Practice Provider documentation review:: Supervising physician onsite and consulted in the evaluation and care of this patient. The physician did have a face to face encounter with the patient. - Progress Note Disposition: d/w Dr Nagy again at 17:25, after family insisting for admission as pt does not have any help at home. Dr Nagy advised admission. This chart was documented by the indicated scribe, (Stella Cortez Scribe) and accurately reflects the services I performed and decisions made by me, Crystal Taylor MD, as attested by the provider's signature.
[2019-02-24] MEDS ORDERED: MIRALAX PO PRN (20:26)
[2019-02-24] MEDS ORDERED: SEROQUEL PO SCH (21:00)
[2019-02-24] MEDS ORDERED: LOVENOX SUBQ SCH (21:45)
[2019-02-24] MEDS: LACTULOSE PO SCH (22:04)
[2019-02-24] MEDS: OXY IR PO SCH (22:05)
--- NOTE | 2019-02-24 22:41 | HISTORY AND PHYSICAL ---
CHIEF COMPLAINT: History of fall this afternoon, sustained injury to the left side. HISTORY OF PRESENT ILLNESS: He is a 58-year-old, white gentleman, recently discharged from [facility] on 02/04/2019. He was in the rehab at [facility], came home today, and had a fall, sustained injury to the left hip. Emergency room workup revealed pelvic fractures and pubic ramus. He was not able to ambulate. He was constipated. Basically, admitted to the hospital for pain control, ambulation. He is a chronically sick patient. PAST MEDICAL HISTORY: 1. Episodic alcohol abuse. 2. BPH. 3. Gallstones. 4. COPD. 5. Acid reflux disease. 6. Chronic constipation. 7. Hypertension. 8. Kyphoscoliosis. 9. Peripheral vascular disease. 10. History of respiratory failure requiring tracheostomy. PAST SURGICAL HISTORY: Amputation of right index finger, status post tracheostomy, status post left hip fracture in 2013. MEDICATIONS: Proscar 5 mg daily, Klonopin 0.5 t.i.d., Lexapro 20 daily, lisinopril 5 mg daily, MiraLAX 17 g daily, oxycodone IR 20 mg 5 times daily, quetiapine 100 mg daily, Trelegy 100/62.5/25 daily, albuterol as needed, Nicotrol patch. ALLERGIES: Not known. SOCIAL HISTORY: , no children, disabled. No smoking. No alcohol. Lives in [facility] with his . Recently discharged from the rehab. FAMILY HISTORY: Father of stroke at 58. Mom is 74, still healthy. HEALTH MAINTENANCE: Flu vaccine 03/21/2018, pneumococcal 13 was given 03/21/2018. REVIEW OF SYSTEMS: HEENT: No headache. No vision problem. No earache. No sore throat. Neck: No goiter. No lymphadenopathy. No bruit. Cardiopulmonary: No chest pain, shortness of breath, PND, orthopnea. Chronic skin rash on the right side of the chest. Pain in the left hip, constipation, and not able to ambulate. Neurologic: No focal symptoms or weakness. PHYSICAL EXAMINATION: VITAL SIGNS: Temperature is 98.3, pulse 103, blood pressure 160/107, 4 L nasal cannula 94%. Five feet 10 inches, 139 pounds. HEENT: Atraumatic, normocephalic. Pupils equally react to light. Nose and throat within normal limits. NECK: Supple. No lymphadenopathy. CHEST: Bilateral air entry decreased on the right side. CARDIOVASCULAR: Heart sounds are regular. No murmur. ABDOMEN: Belly is soft, obese, nontender. P MUSCULOSKELETAL/NEUROLOGIC: Pain on the left side. No obvious deficits. DIAGNOSTIC DATA: 1. Urine toxicology screen positive for oxycodone and marijuana. Urinalysis is clear. 2. Shoulder x-ray on the left side: No acute bony injury. Pelvic CT: Acute fracture of the inferior pubic ramus on the left. Constipation. Bones are osteopenic. Severe lumbar scoliosis. Stable metabolic cirilo on the left side. Left femur: Prior surgery to the hip. No fracture, no dislocation. Left elbow: No acute bony injury. ASSESSMENT AND PLAN: A 58-year-old, white male, recently discharged from the rehab, sustained injury to the pelvic bone, not able to ambulate. Basically, admitted to the hospital for physical therapy. 1. Pain control with oxycodone. 2. Reconcile home medicines. 3. Nicotine patch. 4. Chronic COPD, on oxygen. 5. Constipation, continue on MiraLAX. 6. We will check the labs in the morning. We will use the Lovenox for DVT prophylaxis and will follow up. cc: Chavez Santoyo MD
[2019-02-24] MEDS ORDERED: FLEET ENEMA PR ONE (23:38)
[2019-02-25] MEDS ORDERED: PRILOSEC PO SCH (07:00)
[2019-02-25] MEDS: LACTULOSE PO SCH (08:24)
[2019-02-25] MEDS: OXY IR PO SCH (08:25)
[2019-02-25 08:31] VITALS: BP 127/91
[2019-02-25] MEDS ORDERED: PRINIVIL PO SCH (09:00)
[2019-02-25] MEDS ORDERED: PROSCAR PO SCH (09:00)
[2019-02-25] MEDS ORDERED: LEXAPRO PO SCH (09:00)
[2019-02-25] MEDS ORDERED: NICODERM PATCH TD SCH (09:00)
[2019-02-25] MEDS ORDERED: KLONOPIN PO SCH (09:00)
[2019-02-25] MEDS ORDERED: VILANTER INH SCH (21:00)
[2019-02-25] MEDS ORDERED: FLUTICASONE INH SCH (21:00)
[2019-02-25] MEDS ORDERED: UMECLIDIN INH SCH (21:00)
--- NOTE | 2019-02-25 22:14 | DISCHARGE SUMMARY ---
ADMISSION DATE: 02/24/2019 DISCHARGE DATE: 02/25/2019 FINAL DIAGNOSIS: Acute cardiopulmonary arrest due to aspiration pneumonia leading to respiratory failure and cardiac arrest. OTHER DIAGNOSES: 1. Episodic alcohol abuse. 2. Gallstones. 3. Benign prostatic hyperplasia. 4. Chronic obstructive pulmonary disease. 5. Acid reflux disease. 6. Hypertension 7. Kyphoscoliosis. 8. Peripheral arterial disease. 9. Pulseless electrical activity. 10. Protein-calorie malnutrition. 11. History of substance abuse with marijuana. 12. History of chronic pain. 13. Pelvic fracture on the left side, inferior pubic ramus. 14. Constipation. BRIEF HISTORY: Please see the H and P that was done on 02/24/2019. In brief he is a 58-year-old white gentleman recently discharged from the rehab home. He fell and sustained injury to the left hip. He was not able to ambulate. Basically, admitted to the hospital for constipation and pain control. He was also abusing marijuana. Last night, he was constipated and given some Fleet enemas. He was given some MiraLAX and I tried to initiate some Relistor. He had good bowel movements and I was making rounds this morning and he appears to be little bit shortness of breath, complains of abdominal pain and nausea. Right after I left, he started having vomiting, aspirated into the lung and the patient was found unresponsive. I was on the floor when that happen and immediate briseida puckett was called. Initiated CPR and ACLS protocol. We ran the code for 30 minutes. He was continuously pulseless electrical activity with despite aggressive ACLS protocol. The patient was not able to survive even after 30 minutes. Briseida Puckett was called off. I left a message to his and spoke to the granddaughter who works in the hospital and the cause of the was due to acute cardiopulmonary arrest due to aspiration with underlying comorbid conditions. Family was notified. cc: Chavez Santoyo MD
== END 2019-02-25 08:59 | disposition expired | DRG 535 ==
LOC: SUPCPDRO → ED 11:25 → 4N 20:10
PROVIDERS: ADMIT Internal Medicine; ATTEND Internal Medicine